=== PATIENT | male | born 1955 | race Caucasian/White ===

== ENCOUNTER 2016-07-12 12:42 | Inpatient (IN) | payer BC ==
[2016-07-12] MEDS ORDERED: Sodium Chloride 0.9% 1,000 ML IV ONE (13:19)
[2016-07-12] MEDS ORDERED: HYDROmorphone 0.5 MG/0.5 ML Syringe IVPUSH ONE ×3 (13:20→17:48)
[2016-07-12] MEDS ORDERED: Ondansetron 4 MG/2 ML SDV IVPUSH ONE (13:20)
--- NOTE | 2016-07-12 13:20 | EDM.PDOC ---
ED HPI GI/ABDOMINAL - General Chief Complaint: Abdominal Pain Stated Complaint: SENT BY [facility] Time Seen by Provider: 07/12/16 13:05 Source of Information: Reports: Patient History Limitations: Reports: No limitations - History of Present Illness INITIAL COMMENTS - FREE TEXT/NARRATIVE: Patient was sent over from [facility] for abdominal pain. He is having mostly LLQ pain, some radiation to RLQ. States he has not felt like eating since he had "a lot of popcorn" yesterday but is tolerating sips of water. Has known diverticula from colonoscopy last year but has never had a flare. - Related Data Allergies/ADRs: Allergies Allergy/AdvReac Type Severity Reaction Status Date / Time No Known Allergies Allergy Verified 07/12/16 13:06 Home Meds: Home Meds DULoxetine [Cymbalta] 60 mg PO DAILY 07/12/16 [History] Loratadine [Claritin] 1 tab PO DAILY PRN 07/12/16 [History] Moexipril/Hydrochlorothiazide [Moexipril-HCTZ 15-12.5 MG] 1 tab PO DAILY [History] Sildenafil [Viagra] 1 tab PO DAILY PRN 07/12/16 [History] Triamcinolone Acetonide [Nasacort AQ [place]] 16.5 gm NASBOTH DAILY PRN 07/12/16 [ History] Past Medical History HEENT History: Reports: Impaired vision Cardiovascular History: Reports: Hypertension - Past Surgical History Cardiovascular Surgical History: Reports: None GI Surgical History: Reports: Hernia, abdominal Other GI Surgeries/Procedures: right side Musculoskeletal Surgical History: Reports: Knee replacement Other Musculoskeletal Surgeries/Procedures:: right knee Social & Family History - Tobacco Use Smoking Status *Q: Never Smoker Second Hand Smoke Exposure: No - Caffeine Use Caffeine Use: Reports: Coffee - Recreational Drug Use Recreational Drug Use: No ED ROS GENERAL - Review of Systems Review Of Systems: See Below Constitutional: Reports: weakness, fatigue. Denies: fever, chills HEENT: Reports: No symptoms Respiratory: Reports: no symptoms Cardiovascular: Reports: No symptoms GI/Abdominal: Reports: Abdominal pain, Diarrhea, Decreased appetite, Nausea. Denies: Black stool, Bloody stool, Constipation, Difficulty swallowing, Distension, Vomiting : Reports: no symptoms Skin: Reports: no symptoms Psychiatric: Reports: No symptoms ED EXAM, GI/ABD - Physical Exam Exam: See Below Exam Limited By: No limitations General Appearance: alert, WD/WN, moderate distress Nose: normal inspection Throat/Mouth: Normal inspection, Normal oropharynx Head: atraumatic, normocephalic Neck: normal inspection Respiratory/Chest: no respiratory distress, lungs clear, normal breath sounds Cardiovascular: normal peripheral pulses, regular rate, rhythm, no murmur GI/Abdominal: soft, hypoactive bowel sounds, tenderness (significant LLQ tenderness, mild-moderate RLQ tenderness) Neurological: alert, oriented Psychiatric: normal affect, normal mood Skin Exam: Warm, Dry, Intact Course - Vital Signs Last Recorded V/S: Last Vital Signs Temp 97.4 F 07/12/16 13:02 Pulse 101 H 07/12/16 13:02 Resp 18 07/12/16 13:02 BP 154/87 H 07/12/16 13:02 Pulse Ox 98 07/12/16 13:02 - Orders/Labs/Meds Orders: Active Orders 24 hr Category Date Time Status Patient Status [ADT] Stat ADT 07/12/16 19:10 Active Sodium Chloride 0.9% [Saline Flush] Med 07/12/16 14:43 Active 10 ml FLUSH ONETIME PRN Medication Orders Sodium Chloride (Saline Flush) 10 ml FLUSH ONETIME PRN PRN Reason: IV FLUSH Last Admin: 07/12/16 14:59 Dose: 10 ml Labs: Laboratory Tests 07/12/16 Range/Units 13:25 Sodium 135 L (136-145) mEq/L Potassium 3.8 (3.5-5.1) mEq/L Chloride 97 L (98-107) mEq/L Carbon Dioxide 25 (21-32) mEq/L Anion Gap 16.8 H (5-15) BUN 18 (7-18) mg/dL Creatinine 1.0 (0.7-1.3) mg/dL Est Cr Clr Drug Dosing 80.53 mL/min Estimated GFR (MDRD) > 60 (>60) mL/min BUN/Creatinine Ratio 18.0 (14-18) Glucose 148 H (80-115) mg/dL Calcium 9.3 (8.5-10.1) mg/dL Total Bilirubin 1.4 H (0.2-1.0) mg/dL AST 17 (15-37) U/L ALT 40 (16-63) U/L Alkaline Phosphatase 67 (46-116) U/L C-Reactive Protein 25.0 H* (<1.0) mg/dL Total Protein 8.0 (6.4-8.2) g/dl Albumin 4.0 (3.4-5.0) g/dl Globulin 4.0 gm/dL Albumin/Globulin Ratio 1.0 (1-2) Lipase 174 (73-393) U/L Meds: Medications Generic Name Dose Route Start Last Admin Trade Name Freq PRN Reason Stop Dose Admin Sodium Chloride 10 ml 07/12/16 14:43 07/12/16 14:59 Saline Flush FLUSH 10 ml ONETIME PRN Administration IV FLUSH Discontinued Medications Generic Name Dose Route Start Last Admin Trade Name Freq PRN Reason Stop Dose Admin Diatrizoate Meglum/Diatrizoate Sod 90 ml 07/12/16 14:43 07/12/16 14:58 Gastrografin 37% PO 07/12/16 14:44 90 ml ONETIME ONE Administration Hydromorphone HCl 0.5 mg 07/12/16 13:20 07/12/16 13:27 Dilaudid IVPUSH 07/12/16 13:21 0.5 mg ONETIME ONE Administration Hydromorphone HCl 0.5 mg 07/12/16 14:19 07/12/16 14:24 Dilaudid IVPUSH 07/12/16 14:20 0.5 mg ONETIME ONE Administration Hydromorphone HCl 0.52 mg 07/12/16 17:45 Dilaudid IVPUSH 07/12/16 17:46 ONETIME ONE Hydromorphone HCl 0.5 mg 07/12/16 17:48 07/12/16 17:53 Dilaudid IVPUSH 07/12/16 17:49 0.5 mg ONETIME ONE Administration Sodium Chloride 1,000 mls @ 999 mls/hr 07/12/16 13:19 07/12/16 13:27 Normal Saline IV 07/12/16 14:19 999 mls/hr ONETIME ONE Administration Metronidazole 500 mg/ Premix 100 mls @ 100 mls/hr 07/12/16 18:06 07/12/16 18: 17 IV 07/12/16 19:05 100 mls/hr ONETIME ONE Administration Levofloxacin/Dextrose 500 mg/ 100 mls @ 100 mls/hr 07/12/16 18:12 07/12/16 18 :18 Premix IV 07/12/16 19:11 100 mls/hr ONETIME ONE Administration Iopamidol 125 ml 07/12/16 14:43 07/12/16 14:59 Isovue-300 (61%) IVPUSH 07/12/16 14:44 125 ml ONETIME ONE Administration Ondansetron HCl 4 mg 07/12/16 13:20 07/12/16 13:27 Zofran IVPUSH 07/12/16 13:21 4 mg ONETIME ONE Administration - Re-Assessments/Exams Free Text/Narrative Re-Assessment/Exam: Outside labs demonstrate a WBC of 23,500. CRP here was 25, creat 1.0. CT findings: "Inflammatory change is identified around the signoid colon in an area of diverticulosis. Findings are felt compatible with diverticulitis. There is some extraluminal gas being seen within the mesentery. No fluid collections are seen at this time to indicate an abscess". With this I recommend he be admitted for observation, MCG was performed and discussed with Dr Ellis. Will consult with surgery prior to admission to ensure no other treatment is indicated. 07/12/16 17:14 07/12/16 17:16 Free Text/Narrative Re-Assessment/Exam: Patient had wanted to go to [place] for hospitalization as it was closer to home but there was some debate if this would still be covered by insurance as transfer was not medically necessary. He decided to stay in [place]. He is full code. Dr Kaya Santacruz did examine patient, agrees to co-manage with hospitalist. Flagyl and Levaquin were ordered and first dose was started. 07/12/16 19:39 Departure - Departure Time of Disposition: 19:41 Disposition: Admitted As Inpatient 64 Condition: fair Clinical Impression: Diverticulitis Qualifiers: Diverticulitis site: large intestine Diverticulitis bleeding: without bleeding Diverticulitis complication: without perforation or abscess Qualified Code(s): K57.32 - Diverticulitis of large intestine without perforation or abscess without bleeding - My Orders Last 24 Hours: My Active Orders 07/12/16 14:43 Sodium Chloride 0.9% [Saline Flush] 10 ml FLUSH ONETIME PRN - Assessment/Plan Last 24 Hours: My Active Orders 07/12/16 14:43 Sodium Chloride 0.9% [Saline Flush] 10 ml FLUSH ONETIME PRN
[2016-07-12] MEDS ORDERED: Diatrizoate Meglumine/Diatrizoate Sodium 37% 120 ML Bottle PO ONE (14:43)
[2016-07-12] MEDS ORDERED: Sodium Chloride 0.9% 10 ML Syringe FLUSH PRN (14:43)
[2016-07-12] MEDS ORDERED: Iopamidol 612 MG/ML 150 ML Bottle IVPUSH ONE (14:43)
--- NOTE | 2016-07-12 15:52 | CT ---
CT abdomen and pelvis Technique: Multiple axial sections were obtained from above the dome of the diaphragm inferiorly through the pubic symphysis. Intravenous and oral contrast was utilized. Delayed images were also obtained through the bladder. Findings: Minimal atelectasis is noted within both lung bases. Coronary artery calcification is seen. Liver contains multiple small low density abnormalities. Most of these measure less than 1 cm with one measuring 1.7 cm. Larger one has Hounsfield unit measurements of a cyst and other smaller ones most likely represent additional small cysts. Spleen appears within normal limits. Adrenal glands show no nodule. Kidneys show contrast enhancement. Several very minimal cysts are believed to be present within both kidneys. Pancreas is unremarkable. Gallbladder shows no calcified gallstones. Aorta shows no aneurysmal dilatation. No retroperitoneal adenopathy is seen. Appendix appears normal. Inflammatory change is identified around the sigmoid colon in an area of diverticulosis. Findings are felt compatible with diverticulitis. There is some extraluminal gas being seen within the mesentery. No fluid collections are seen at this time to indicate an abscess. Delayed images shows contrast within the distal ureters and within the bladder. No bowel dilatation is seen. Small umbilical hernia is seen containing fat. Bone window settings were reviewed which appear within normal limits for the patient's age. Impression: 1. Findings compatible with diverticulitis within the sigmoid colon as noted above. 2. Other findings which are felt to be incidental as described above. Diagnostic code #3
[2016-07-12] MEDS ORDERED: HYDROmorphone 1 MG/ML Syringe IVPUSH ONE (17:45)
[2016-07-12] MEDS ORDERED: metroNIDAZOLE/Normal Saline 500 MG in Premix Bag 1 BAG IV ONE (18:06)
[2016-07-12] MEDS ORDERED: Levofloxacin/Dextrose 5%-Water 500 MG in Premix Bag 1 BAG IV ONE (18:12)
--- NOTE | 2016-07-12 18:24 | PCM.CONS ---
H&P History of Present Illness - General Date of Service: 07/12/16 - History of Present Illness Initial Comments - Free Text/Narative: The patient is a 61-year-old man I was asked to see in consultation by BECKY Conklin. He was sent to the emergency department at [facility] after initially being seen at the [facility]. Due to his highly elevated white count, and 25,000, and his symptoms of abdominal pain, he was sent over. The patient had a CT scan of the abdomen and pelvis at [facility] which demonstrated sigmoid diverticulitis with what appeared to be a focal perforation and a couple of small pockets of pneumoperitoneum in the mesentery. There was no evidence of abscess. On arrival to the emergency department he was also found to have an elevated total bilirubin of 1.4 and CRP of 25. The patient was afebrile with normal blood pressure and normal heart rate. He states that the pain began abruptly yesterday afternoon. It is primarily in the bilateral lower quadrants. It is achy, crampy, occasionally sharp and can occasionally double him over. He has never had similar pain. He states he had chills last night. He is also had nausea, vomiting, and diarrhea. He states he ate a lot of popcorn the day before. He does have a history of diverticulosis and last had a colonoscopy 12-07-[address] Stone at [facility]. Several small tubular adenomas were removed. The patient does have a family history of colon cancer in his father. He denies any previous episodes of diverticulitis of this significance, however he was noted to have some sigmoid colitis on his November colonoscopy. The patient does live in [place] with his , all of his family is also in [place]. His primary care provider is Sarita Bob with [facility]. He also receives care at [facility]. He works in [employer]. PMH - hypertension, obesity with BMI of 31.49, osteoarthritis, history of colon polyps, history of skin cancer, history of dysthymic disorder, seasonal allergies, erectile dysfunction PSxH - multiple prior colonoscopies with polypectomies, last 12-07-15, history of right inguinal hernia repair, history of sinus surgery, history of anterior cruciate ligament repair of the knee in 1996, history of right total knee arthroplasty Meds - Cymbalta 60 mg daily, Uniretic, Viagra, Claritin, Nasocort ALL - no known drug allergies SH - never smoker. Occasional alcohol use. Denies illicit drug use. Lives with in [place]. Works in [employer]. FH - father had history of colon cancer, at 70. Mother had hypertension. He also has a sister and a brother. ROS - as per HPI, otherwise 10 pt ROS was negative. Denies CP, palpitations, easy bleeding/bruising, or hx of difficulty with anesthesia. Bilateral Lower Abdomen Pain Score (Numeric/FACES): 8 - Related Data Allergies/Adverse Reactions: Allergies Allergy/AdvReac Type Severity Reaction Status Date / Time No Known Allergies Allergy Verified 07/12/16 13:06 Home Medications: Home Meds DULoxetine [Cymbalta] 60 mg PO DAILY 07/12/16 [History] Loratadine [Claritin] 1 tab PO DAILY PRN 07/12/16 [History] Moexipril/Hydrochlorothiazide [Moexipril-HCTZ 15-12.5 MG] 1 tab PO DAILY [History] Sildenafil [Viagra] 1 tab PO DAILY PRN 07/12/16 [History] Triamcinolone Acetonide [Nasacort AQ [place]] 16.5 gm NASBOTH DAILY PRN 07/12/16 [ History] Past Medical History HEENT History: Reports: Impaired vision Cardiovascular History: Reports: Hypertension - Past Surgical History Cardiovascular Surgical History: Reports: None GI Surgical History: Reports: Hernia, abdominal Other GI Surgeries/Procedures: right side Musculoskeletal Surgical History: Reports: Knee replacement Other Musculoskeletal Surgeries/Procedures:: right knee Social & Family History - Tobacco Use Smoking Status *Q: Never Smoker Second Hand Smoke Exposure: No - Caffeine Use Caffeine Use: Reports: Coffee - Recreational Drug Use Recreational Drug Use: No H&P Review of Systems - Review of Systems: Review Of Systems: ROS reveals no pertinent complaints other than HPI. Exam - Exam Exam: See Below - Vital Signs Vital Signs: Last Vital Signs Temp 97.4 F 07/12/16 13:02 Pulse 101 H 07/12/16 13:02 Resp 18 07/12/16 13:02 BP 154/87 H 07/12/16 13:02 Pulse Ox 98 07/12/16 13:02 Weight: 220 lb - Exam General: alert, oriented, cooperative, mild distress HEENT: No: Scleral icterus Neck: supple, trachea midline Lungs: Clear to auscultation, Normal respiratory effort Cardiovascular: regular rhythm, tachycardia (slight tachycardia (105)). No: systolic murmur, diastolic murmur Abdomen: soft, tenderness (bilateral lower quadrants ). No: peritoneal signs, distention, rigidity, rebound (Male) Exam: Deferred Rectal (Males) Exam: Deferred Extremities: No: clubbing, cyanosis, calf tenderness, edema Skin: warm, dry, intact Neurological: cranial nerves intact, normal speech. No: focal deficit Neuro Extensive - Mental Status: alert, oriented x3, normal mood/affect, normal cognition Psychiatric: alert, normal affect, normal mood - Patient Data Lab Results last 24 hrs: Result Diagrams: 07/14/16 04:37 07/14/16 04:37 Consult PN Assessment/Plan (1) Diverticulitis large intestine SNOMED Code(s): 7582710 Code(s): K57.32 - DVTRCLI OF LG INT W/O PERFORATION OR ABSCESS W/O BLEEDING Current Visit: Yes Problem List Initiated/Reviewed/Updated: Yes My Orders last 24 hours: My Active Orders 07/12/16 18:06 metroNIDAZOLE/Normal Saline [Flagyl 500 MG in NS 100 ML] 500 mg Premix Bag 1 bag IV ONETIME 07/12/16 18:12 Levofloxacin/Dextrose 5%-Water [Levaquin in D5W 500 MG/100 ML] 500 mg Premix Bag 1 bag IV ONETIME Plan: 61 yo M with diverticulitis of sigmoid colon with focal perforation and two small pockets of mesenteric air, no abscess Discussed findings of imaging/labs/exam and treatment plan with patient (bowel rest, IV antibiotics, possible surgery for worsening of condition, possible abscess drainage if abscess develops). He would prefer to be hospitalized in [place], as he lives there and his family is there. Would prefer to be admitted at [facility]. Patient is clinically stable and does NOT have a surgical abdomen on exam. Will provide Levaquin and Flagyl IV x 1 now while patient arranges private vehicle transport to [place]. Nereida Avendano, PAC updated and she will contact [facility] to discuss poss direct admit. Addendum: Informed by Ms. Dinius that patient decided to stay in [place], apparently was told by [facility] Hospitalist that would have to pay for entire stay in [place] out of pocket. Will continue to follow along with Hospitalist service.
--- NOTE | 2016-07-12 19:53 | PCM.HP ---
H&P History of Present Illness - General Date of Service: 07/12/16 Admit Problem/Dx: Diverticulitis Source of Information: Patient, Provider, RN notes reviewed History Limitations: Reports: No limitations - History of Present Illness Initial Comments - Free Text/Narative: This is a 61 yo white male with past medical hx/o HTN and ED who comes in with complaints of abdominal pain. He was initially seen at [facility] and was sent over for further eval. His pain is localized mostly on lower abdomen with some radiation to the right lower quadrant. He has not had anything to eat. His last meal was yesterday wherein he ate "a lot of popcorn". He denies any nausea or vomiting. He is passing gas and his last bowel movement was 2 hrs ago after he took the contrast for imaging study. Patient carries an hx/o diverticulosis. He has had colonoscopy 4-5 times now. His most recent was about a year ago done in [place] by Dr. Stone. His initial work up in ED shows a chemistry remarkable for Na 135, AG 16.8, BS 148, Total bili 1.4 and CRP 25. FLTs and Lipase are normal. Abdomen/Pelvis CT scan shows sigmoid diveritculitis with some extraluminal gas being seen within the mesentary. Dr. Santacruz was consulted in ED for co-management. Patient is full code. Bilateral Lower Abdomen Pain Score (Numeric/FACES): 8 - Related Data Allergies/Adverse Reactions: Allergies Allergy/AdvReac Type Severity Reaction Status Date / Time No Known Allergies Allergy Verified 07/12/16 13:06 Home Medications: Home Meds Moexipril/Hydrochlorothiazide [Moexipril-HCTZ 15-12.5 MG] 1 tab PO DAILY [History] RX: DULoxetine [Cymbalta] 60 mg PO DAILY 07/12/16 [History] RX: Loratadine [Claritin] 1 tab PO DAILY PRN 07/12/16 [History] RX: Sildenafil [Viagra] 1 tab PO DAILY PRN 07/12/16 [History] RX: Triamcinolone Acetonide [Nasacort AQ [place]] 16.5 gm NASBOTH DAILY PRN [History] Past Medical History HEENT History: Reports: Impaired vision Cardiovascular History: Reports: Hypertension - Past Surgical History Cardiovascular Surgical History: Reports: None GI Surgical History: Reports: Hernia, abdominal Other GI Surgeries/Procedures: right side Musculoskeletal Surgical History: Reports: Knee replacement Other Musculoskeletal Surgeries/Procedures:: right knee Social & Family History - Tobacco Use Smoking Status *Q: Never Smoker Second Hand Smoke Exposure: No - Caffeine Use Caffeine Use: Reports: Coffee - Recreational Drug Use Recreational Drug Use: No H&P Review of Systems - Review of Systems: Review Of Systems: See Below General: Denies: fever, chills, malaise, weakness, fatigue, night sweats HEENT: Reports: no symptoms Pulmonary: Denies: shortness of breath Cardiovascular: Denies: chest pain, palpitations, dyspnea on exertion Gastrointestinal: Reports: Abdominal pain. Denies: Diarrhea, Decreased appetite , Difficulty swallowing, Melena, Nausea Genitourinary: Reports: no symptoms Musculoskeletal: Reports: no symptoms Skin: Denies: cyanosis, jaundice, pruritis, erythema Psychiatric: Denies: depression, anxiety Neurological: Denies: confusion, weakness Hematologic/Lymphatic: Reports: no symptoms Immunologic: Reports: no symptoms Exam - Exam Exam: See Below - Vital Signs Vital Signs: Last Vital Signs Temp 36.3 C 07/12/16 13:02 Pulse 101 H 07/12/16 13:02 Resp 18 07/12/16 13:02 BP 154/87 H 07/12/16 13:02 Pulse Ox 98 07/12/16 13:02 Weight: 99.79 kg - Exam General: alert, oriented, cooperative HEENT: Conjunctiva clear, EACs clear, EOMI, Hearing intact, Mucosa moist & pink , Nares patent, Normal nasal septum, Posterior pharynx clear, Pupils equal, Pupils reactive, TMs clear Neck: supple, trachea midline Lungs: Clear to auscultation, Normal respiratory effort Cardiovascular: regular rate, regular rhythm Abdomen: normal bowel sounds, soft, tenderness, other (bloated but not tight). No: organomegaly, peritoneal signs, rigidity, rebound (Male) Exam: Deferred Rectal (Males) Exam: Deferred Back Exam: normal inspection, decreased range of motion Extremities: normal inspection, normal pulses. No: clubbing, cyanosis, calf tenderness, edema Peripheral Pulses: 2+: dorsalis pedis (L), dorsalis pedis (R) Skin: warm, dry, intact Neuro Extensive - Mental Status: oriented x3, normal cognition, memory intact Neuro Extensive - Motor, Sensory, Reflexes: CN II-XII intact, normal gait Psychiatric: alert, normal affect, normal mood - Patient Data Result Diagrams: 07/12/16 13:25 *Q Meaningful Use (ADM) - VTE *Q VTE Criteria *Q: - Stroke *Q Stroke Criteria *Q: - AMI *Q AMI Criteria *Q: Problem List Initiated/Reviewed/Updated: Yes Orders Last 24hrs: Medication Orders Sodium Chloride (Saline Flush) 10 ml FLUSH ONETIME PRN PRN Reason: IV FLUSH Last Admin: 07/12/16 14:59 Dose: 10 ml Assessment/Plan Comment:: Assessment/Plan: Acute Sigmoid Diverticulosis - Carries a hx/o Diverticulosis - CRP 25, no CBC done - Already Received IV Abx in ED - Will continue IV-ATB - Bowel Rest, Supportive Care, NPO except small ice chips - Dr. Santacruz on-board for co-management Chronic: HTN Seasonal Allergies Depression Plan: Routine AM Labs Resume Home Meds Additional orders as above Code status: 1
[2016-07-12] MEDS ORDERED: Acetaminophen 325 MG Tab PO PRN (20:10)
[2016-07-12] MEDS ORDERED: LORazepam 2 MG/ML MDV IV PRN (20:12)
[2016-07-12] MEDS ORDERED: Albuterol 0.083% 2.5 MG/3 ML Neb Soln NEB PRN (20:12)
[2016-07-12] MEDS ORDERED: Promethazine 12.5 MG in Sodium Chloride 0.9% 50 ML IV PRN (20:12)
[2016-07-12] MEDS ORDERED: Ondansetron 4 MG/2 ML SDV IV PRN (20:12)
[2016-07-12] MEDS ORDERED: SILDENAFIL PO PRN (20:40)
[2016-07-12] MEDS ORDERED: Loratadine 10 MG Tab PO PRN (20:40)
[2016-07-12] MEDS ORDERED: Temazepam 30 MG Cap PO PRN (20:46)
[2016-07-12] MEDS: HYDROmorphone 1 MG/ML Syringe IVPUSH PRN (21:15)
[2016-07-12] MEDS: Dextrose 5%-0.9% NaCl 1,000 ML IV SCH (21:31)
[2016-07-13] MEDS: metroNIDAZOLE/Normal Saline 500 MG in Premix Bag 1 BAG IV SCH ×3 (01:34→18:03)
[2016-07-13] MEDS: HYDROmorphone 1 MG/ML Syringe IVPUSH PRN ×2 (01:44→18:09)
[2016-07-13] MEDS: Dextrose 5%-0.9% NaCl 1,000 ML IV SCH ×2 (05:29→22:06)
[2016-07-13] MEDS: Acetaminophen/HYDROcodone 325-5 MG Tab PO PRN ×3 (05:33→18:01)
--- NOTE | 2016-07-13 07:42 | PCM.PN ---
- General Info Date of Service: 07/13/16 Admission Dx/Problem (Free Text): Diverticulitis Subjective Update: Follow Up Functional Status: Reports: pain controlled, ambulating, urinating. Denies: new symptoms - Review of Systems General: Denies: fever, weakness, fatigue, malaise, chills HEENT: Reports: no symptoms Pulmonary: Denies: shortness of breath Cardiovascular: Denies: chest pain Gastrointestinal: Reports: Abdominal pain, Diarrhea, Flatus. Denies: Constipation, Difficulty swallowing, Hematochezia, Melena, Nausea, Vomiting Genitourinary: Reports: no symptoms Musculoskeletal: Reports: no symptoms Skin: Reports: no symptoms Neurological: Denies: confusion Psychiatric: Denies: depression, anxiety Systems Review Comment:: No significant overnight or acute issues. He feels good. His had a loose bowel movement this am. He is passing gas. He denies nausea or vomiting. - Patient Data Vitals - most recent: Last Vital Signs Temp 37.2 C 07/13/16 01:38 Pulse 116 H 07/13/16 01:38 Resp 18 07/13/16 01:38 BP 128/83 07/13/16 01:38 Pulse Ox 95 07/13/16 01:38 Weight - most recent: 101.741 kg I&O - last 24 hours: Intake & Output 07/12/16 07/13/16 07/13/16 22:59 06:59 14:59 Intake Total 1241 Output Total 600 Balance 641 Lab Results last 24 hrs: Laboratory Results - last 24 hr 07/13/16 07/13/16 Range/Units 05:34 05:34 WBC 23.81 H (4.23-9.07) K/mm3 RBC 4.90 (4.63-6.08) M/mm3 Hgb 15.0 (13.7-17.5) gm/L Hct 42.4 (40.1-51.0) % MCV 86.5 (79.0-92.2) fl MCH 30.6 (25.7-32.2) pg MCHC 35.4 (32.2-35.5) g/dl RDW Std Deviation 45.6 H (35.1-43.9) fL Plt Count 265 (163-337) K/mm3 MPV 9.7 (9.4-12.3) fl Neut % (Auto) 89.9 H (34.0-67.9) % Lymph % (Auto) 6.9 L (21.8-53.1) % [place] % (Auto) 3.1 L (5.3-12.2) % Eos % (Auto) 0.1 L (0.8-7.0) Baso % (Auto) 0.0 L (0.1-1.2) % Neut # 21.41 H (1.78-5.38) K/mm3 Lymph # 1.64 (1.32-3.57) K/mm3 [place] # 0.73 (0.30-0.82) K/mm3 Eos # 0.02 L (0.04-0.54) K/mm3 Baso # 0.01 (0.01-0.08) K/mm3 Manual Slide Review Abnormal smear Sodium 134 L (136-145) mEq/L Potassium 4.0 (3.5-5.1) mEq/L Chloride 99 (98-107) mEq/L Carbon Dioxide 24 (21-32) mEq/L Anion Gap 15.0 (5-15) BUN 12 (7-18) mg/dL Creatinine 1.1 (0.7-1.3) mg/dL Est Cr Clr Drug Dosing 73.21 mL/min Estimated GFR (MDRD) > 60 (>60) mL/min BUN/Creatinine Ratio 10.9 L (14-18) Glucose 150 H (80-115) mg/dL Calcium 8.6 (8.5-10.1) mg/dL Magnesium 1.8 (1.8-2.4) mg/dl C-Reactive Protein 40.8 H* (<1.0) mg/dL Med Orders - Current: Current Medications Acetaminophen (Tylenol) 650 mg PO Q4H PRN PRN Reason: Pain (Mild 1-3)/fever Acetaminophen/Hydrocodone Bitart ([place] 325-5 Mg) 1 tab PO Q4H PRN PRN Reason: Pain (moderate 4-6) Last Admin: 07/13/16 05:33 Dose: 1 tab Albuterol (Proventil Neb Soln) 2.5 mg NEB Q2H PRN PRN Reason: Shortness Of Breath/wheezing Duloxetine HCl (Cymbalta) 60 mg PO DAILY [facility] Hydrochlorothiazide (Hydrochlorothiazide) 12.5 mg PO DAILY [facility] Hydromorphone HCl (Dilaudid) 0.5 mg IVPUSH Q2H PRN PRN Reason: Pain (severe 7-10) Stop: 07/16/16 23:59 Last Admin: 07/13/16 01:44 Dose: 0.5 mg Promethazine HCl 12.5 mg/ (Sodium Chloride) 50.5 mls @ 100 mls/hr IV Q6H PRN PRN Reason: Nausea/Vomiting Dextrose/Sodium Chloride (Dextrose 5%-Normal Saline) 1,000 mls @ 125 mls/hr IV ASDIRECTED [facility] Last Admin: 07/13/16 05:29 Dose: 125 mls/hr Levofloxacin/Dextrose 500 mg/ (Premix) 100 mls @ 100 mls/hr IV Q24H [facility] Metronidazole 500 mg/ Premix 100 mls @ 100 mls/hr IV Q8H [facility] Last Admin: 07/13/16 01:34 Dose: 100 mls/hr Lisinopril (Prinivil) 10 mg PO DAILY [facility] Loratadine (Claritin) 10 mg PO DAILY PRN PRN Reason: Allergies Lorazepam (Ativan) 1 mg IV Q6H PRN PRN Reason: Other Non-Formulary Medication (Sildenafil) 1 tab PO DAILY PRN PRN Reason: impotence Triamcinolone (Acetonide Topical) 16.5 gm NASBOTH DAILY PRN PRN Reason: Allergies Ondansetron HCl (Zofran) 4 mg IV Q6H PRN PRN Reason: Nausea/Vomiting Sodium Chloride (Saline Flush) 10 ml FLUSH ONETIME PRN PRN Reason: IV FLUSH Last Admin: 07/12/16 14:59 Dose: 10 ml Temazepam (Restoril) 30 mg PO BEDTIME PRN PRN Reason: Sleep Discontinued Medications Diatrizoate Meglum/Diatrizoate Sod (Gastrografin 37%) 90 ml PO ONETIME ONE Stop: 07/12/16 14:44 Last Admin: 07/12/16 14:58 Dose: 90 ml Hydromorphone HCl (Dilaudid) 0.5 mg IVPUSH ONETIME ONE Stop: 07/12/16 13:21 Last Admin: 07/12/16 13:27 Dose: 0.5 mg Hydromorphone HCl (Dilaudid) 0.5 mg IVPUSH ONETIME ONE Stop: 07/12/16 14:20 Last Admin: 07/12/16 14:24 Dose: 0.5 mg Hydromorphone HCl (Dilaudid) 0.52 mg IVPUSH ONETIME ONE Stop: 07/12/16 17:46 Hydromorphone HCl (Dilaudid) 0.5 mg IVPUSH ONETIME ONE Stop: 07/12/16 17:49 Last Admin: 07/12/16 17:53 Dose: 0.5 mg Sodium Chloride (Normal Saline) 1,000 mls @ 999 mls/hr IV ONETIME ONE Stop: 07/12/16 14:19 Last Admin: 07/12/16 13:27 Dose: 999 mls/hr Metronidazole 500 mg/ Premix 100 mls @ 100 mls/hr IV ONETIME ONE Stop: 07/12/16 19:05 Last Admin: 07/12/16 18:17 Dose: 100 mls/hr Levofloxacin/Dextrose 500 mg/ (Premix) 100 mls @ 100 mls/hr IV ONETIME ONE Stop: 07/12/16 19:11 Last Admin: 07/12/16 18:18 Dose: 100 mls/hr Iopamidol (Isovue-300 (61%)) 125 ml IVPUSH ONETIME ONE Stop: 07/12/16 14:44 Last Admin: 07/12/16 14:59 Dose: 125 ml Ondansetron HCl (Zofran) 4 mg IVPUSH ONETIME ONE Stop: 07/12/16 13:21 Last Admin: 07/12/16 13:27 Dose: 4 mg Temazepam (Restoril) 30 mg PO BEDTIME PRN PRN Reason: SLEEP Stop: 07/12/16 23:00 Last Admin: 07/12/16 21:21 Dose: 30 mg - Exam General: alert, oriented, cooperative, no acute distress HEENT: Pupils equal, Pupils reactive, EOMI, Mucous membr. moist/pink Neck: supple, trachea midline Lungs: Clear to auscultation, Normal respiratory effort Cardiovascular: regular rate, regular rhythm Abdomen: bowel sounds present, soft, no distension, tenderness, abnormal bowel sounds (hyperactive), other (bloated and round). No: rigidity, guarding (Male) Exam: Deferred Back Exam: normal inspection, decreased range of motion Extremities: no edema, normal pulses, no tenderness/swelling, no clubbing, no cyanosis, no calf tenderness, calf tenderness Peripheral Pulses: 2+: dorsalis pedis (L), dorsalis pedis (R) Skin: warm, dry, intact Neurological: no new focal deficit Psy/Mental Status: alert, normal affect, normal mood - Problem List Review Problem List Initiated/Reviewed/Updated: Yes - My Orders Last 24 Hours: My Active Orders 07/12/16 20:10 Intake and Output [RC] 04,16 Oxygen Therapy [RC] PRN Up With Assistance [RC] ASDIRECTED Up ad Vero [RC] ASDIRECTED VTE/DVT Education [RC] PER UNIT ROUTINE Vital Signs [RC] Q4H Acetaminophen [Tylenol] 650 mg PO Q4H PRN Acetaminophen/HYDROcodone [[place] 325-5 MG] 1 tab PO Q4H PRN HYDROmorphone [Dilaudid] 0.5 mg IVPUSH Q2H PRN Sequential Compression Device [OM.PC] Per Unit Routine Resuscitation Status Routine 07/12/16 20:12 Antiembolic Devices [RC] PER UNIT ROUTINE RT Aerosol Therapy [RC] ASDIRECTED Albuterol [Proventil Neb Soln] 2.5 mg NEB Q2H PRN LORazepam [Ativan] 1 mg IV Q6H PRN Ondansetron [Zofran] 4 mg IV Q6H PRN Promethazine [Phenergan] 12.5 mg Sodium Chloride 0.9% [Normal Saline] 50 ml IV Q6H Temazepam [Restoril] 30 mg PO BEDTIME PRN 07/12/16 20:14 Notify Provider Consults [RC] ASDIRECTED Consult to Case Management [CONS] Routine Consult to Physician [CONS] Routine Consult to Air Filler [CONS] Routine 07/12/16 20:40 Loratadine [Claritin] 10 mg PO DAILY PRN Sildenafil 1 tab PO DAILY PRN Triamcinolone Acetonide 16.5 gm NASBOTH DAILY PRN 07/12/16 20:45 Dextrose 5%-0.9% NaCl [Dextrose 5%-Normal Saline] 1,000 ml IV ASDIRECTED 07/12/16 Dinner Nothing per Oral Now Diet [DIET] 07/13/16 02:00 metroNIDAZOLE/Normal Saline [Flagyl 500 MG in NS 100 ML] 500 mg Premix Bag 1 bag IV Q8H 07/13/16 09:00 DULoxetine [Cymbalta] 60 mg PO DAILY Hydrochlorothiazide 12.5 mg PO DAILY Lisinopril [Prinivil] 10 mg PO DAILY 07/13/16 18:00 Levofloxacin/Dextrose 5%-Water [Levaquin in D5W 500 MG/100 ML] 500 mg Premix Bag 1 bag IV Q24H 07/14/16 05:11 BASIC METABOLIC PANEL,BMP [CHEM] AM C-REACTIVE PROTEIN [CHEM] AM CBC WITH AUTO DIFF [HEME] AM MAGNESIUM [CHEM] AM 07/15/16 05:11 BASIC METABOLIC PANEL,BMP [CHEM] AM C-REACTIVE PROTEIN [CHEM] AM CBC WITH AUTO DIFF [HEME] AM MAGNESIUM [CHEM] AM 07/16/16 05:11 C-REACTIVE PROTEIN [CHEM] AM - Plan Plan:: Assessment/Plan: Acute Sigmoid Diverticulosis - Carries a hx/o Diverticulosis - CRP 25--> 40.8, WBC 23.81, Neutrophils 21.41 - On Intravenous Levaquin and Flagyl - Bowel Rest, Supportive Care, NPO except small ice chips - Dr. Santacruz on-board for co-management Sinus Tachycardia - HR 106-116 - Follow up EKG Chronic: HTN Seasonal Allergies Depression Plan: Continue current treatment Defer po level to Dr. Santacruz Continue po meds Routine AM Labs Resume Home Meds Encourage to ambulated TIS-QID as tolerated Additional orders as above Code status: 1
[2016-07-13] MEDS ORDERED: Metoprolol Tartrate 5 MG/5 ML SDV IVPUSH PRN (10:07)
[2016-07-13] MEDS: Lisinopril 10 MG Tab PO SCH (10:48)
[2016-07-13] MEDS: Hydrochlorothiazide 12.5 MG Cap PO SCH (10:48)
[2016-07-13] MEDS: DULoxetine 30 MG Cap PO SCH (10:48)
--- NOTE | 2016-07-13 12:32 | PCM.CONSN ---
- General Info Date of Service: 07/13/16 Admission Dx/Problem (Free Text): Diverticulitis - Review of Systems Systems Review Comment:: Pain improved over yesterday. + loose stools, no hematochezia. + Flatus. Denies hunger. Afebrile overnight. - Patient Data Vitals - most recent: Last Vital Signs Temp 99.3 F 07/13/16 11:55 Pulse 109 H 07/13/16 11:55 Resp 18 07/13/16 11:55 BP 114/77 07/13/16 11:55 Pulse Ox 92 L 07/13/16 11:55 Weight - most recent: 224 lb 4.8 oz I&O - last 24 hours: Intake & Output 07/12/16 07/13/16 07/13/16 22:59 06:59 14:59 Intake Total 0 Balance 0 Lab Results last 24 hrs: Laboratory Results - last 24 hr 07/13/16 Range/Units 10:35 Lactic Acid 0.9 (0.4-2.0) mmol/L Med Orders - Current: Current Medications Acetaminophen (Tylenol) 650 mg PO Q4H PRN PRN Reason: Pain (Mild 1-3)/fever Acetaminophen/Hydrocodone Bitart ([place] 325-5 Mg) 1 tab PO Q4H PRN PRN Reason: Pain (moderate 4-6) Last Admin: 07/13/16 10:55 Dose: 1 tab Albuterol (Proventil Neb Soln) 2.5 mg NEB Q2H PRN PRN Reason: Shortness Of Breath/wheezing Duloxetine HCl (Cymbalta) 60 mg PO DAILY [facility] Last Admin: 07/13/16 10:48 Dose: 60 mg Hydrochlorothiazide (Hydrochlorothiazide) 12.5 mg PO DAILY [facility] Last Admin: 07/13/16 10:48 Dose: 12.5 mg Hydromorphone HCl (Dilaudid) 0.5 mg IVPUSH Q2H PRN PRN Reason: Pain (severe 7-10) Stop: 07/16/16 23:59 Last Admin: 07/13/16 01:44 Dose: 0.5 mg Promethazine HCl 12.5 mg/ (Sodium Chloride) 50.5 mls @ 100 mls/hr IV Q6H PRN PRN Reason: Nausea/Vomiting Dextrose/Sodium Chloride (Dextrose 5%-Normal Saline) 1,000 mls @ 125 mls/hr IV ASDIRECTED [facility] Last Admin: 07/13/16 05:29 Dose: 125 mls/hr Levofloxacin/Dextrose 500 mg/ (Premix) 100 mls @ 100 mls/hr IV Q24H [facility] Metronidazole 500 mg/ Premix 100 mls @ 100 mls/hr IV Q8H [facility] Last Admin: 07/13/16 10:48 Dose: 100 mls/hr Lisinopril (Prinivil) 10 mg PO DAILY [facility] Last Admin: 07/13/16 10:48 Dose: 10 mg Loratadine (Claritin) 10 mg PO DAILY PRN PRN Reason: Allergies Lorazepam (Ativan) 1 mg IV Q6H PRN PRN Reason: Other Metoprolol Tartrate (Lopressor) 5 mg IVPUSH Q4H PRN PRN Reason: Tachycardia Triamcinolone (Acetonide Topical) 16.5 gm NASBOTH DAILY PRN PRN Reason: Allergies Ondansetron HCl (Zofran) 4 mg IV Q6H PRN PRN Reason: Nausea/Vomiting Sodium Chloride (Saline Flush) 10 ml FLUSH ONETIME PRN PRN Reason: IV FLUSH Last Admin: 07/12/16 14:59 Dose: 10 ml Temazepam (Restoril) 30 mg PO BEDTIME PRN PRN Reason: Sleep Discontinued Medications Diatrizoate Meglum/Diatrizoate Sod (Gastrografin 37%) 90 ml PO ONETIME ONE Stop: 07/12/16 14:44 Last Admin: 07/12/16 14:58 Dose: 90 ml Hydromorphone HCl (Dilaudid) 0.5 mg IVPUSH ONETIME ONE Stop: 07/12/16 13:21 Last Admin: 07/12/16 13:27 Dose: 0.5 mg Hydromorphone HCl (Dilaudid) 0.5 mg IVPUSH ONETIME ONE Stop: 07/12/16 14:20 Last Admin: 07/12/16 14:24 Dose: 0.5 mg Hydromorphone HCl (Dilaudid) 0.52 mg IVPUSH ONETIME ONE Stop: 07/12/16 17:46 Last Admin: 07/13/16 12:28 Dose: Not Given Hydromorphone HCl (Dilaudid) 0.5 mg IVPUSH ONETIME ONE Stop: 07/12/16 17:49 Last Admin: 07/12/16 17:53 Dose: 0.5 mg Sodium Chloride (Normal Saline) 1,000 mls @ 999 mls/hr IV ONETIME ONE Stop: 07/12/16 14:19 Last Admin: 07/12/16 13:27 Dose: 999 mls/hr Metronidazole 500 mg/ Premix 100 mls @ 100 mls/hr IV ONETIME ONE Stop: 07/12/16 19:05 Last Admin: 07/12/16 18:17 Dose: 100 mls/hr Levofloxacin/Dextrose 500 mg/ (Premix) 100 mls @ 100 mls/hr IV ONETIME ONE Stop: 07/12/16 19:11 Last Admin: 07/12/16 18:18 Dose: 100 mls/hr Iopamidol (Isovue-300 (61%)) 125 ml IVPUSH ONETIME ONE Stop: 07/12/16 14:44 Last Admin: 07/12/16 14:59 Dose: 125 ml Non-Formulary Medication (Sildenafil) 1 tab PO DAILY PRN PRN Reason: impotence Ondansetron HCl (Zofran) 4 mg IVPUSH ONETIME ONE Stop: 07/12/16 13:21 Last Admin: 07/12/16 13:27 Dose: 4 mg Temazepam (Restoril) 30 mg PO BEDTIME PRN PRN Reason: SLEEP Stop: 07/12/16 23:00 Last Admin: 07/12/16 21:21 Dose: 30 mg - Exam Quality Assessment: No: supplemental oxygen General: alert, oriented, cooperative, no acute distress HEENT: No: Scleral icterus Lungs: Clear to auscultation, Normal respiratory effort Cardiovascular: regular rate, regular rhythm Abdomen: soft, no distension, tenderness (Bilateral lower quadrants ). No: rigidity Extremities: no edema, no clubbing. No: calf tenderness Skin: warm, dry, intact Neurological: no new focal deficit Psy/Mental Status: alert, normal affect, normal mood Consult PN Assessment/Plan (1) Diverticulitis large intestine SNOMED Code(s): 1849800 Code(s): K57.32 - DVTRCLI OF LG INT W/O PERFORATION OR ABSCESS W/O BLEEDING Current Visit: Yes Problem List Initiated/Reviewed/Updated: Yes Plan: 61 yo M with diverticulitis of sigmoid colon with focal perforation and two small pockets of mesenteric air, no abscess - Continue IV abx Levquin/Flagyl (D2/14) - No need for surgical intervention at this time, but will continue to monitor - Strict NPO x scant ice chips for bowel rest - Consider PICC - WBC down slightly 25->23.8, CRP up 25->40.8
[2016-07-13] MEDS: Levofloxacin/Dextrose 5%-Water 500 MG in Premix Bag 1 BAG IV SCH (19:04)
[2016-07-13] MEDS: Temazepam 15 MG Cap PO PRN (22:05)
[2016-07-14] MEDS: metroNIDAZOLE/Normal Saline 500 MG in Premix Bag 1 BAG IV SCH ×3 (01:47→18:18)
[2016-07-14] MEDS: Acetaminophen/HYDROcodone 325-5 MG Tab PO PRN ×4 (05:15→22:23)
[2016-07-14] MEDS: HYDROmorphone 1 MG/ML Syringe IVPUSH PRN ×4 (05:15→22:22)
[2016-07-14] MEDS: Dextrose 5%-0.9% NaCl 1,000 ML IV SCH ×3 (05:16→22:31)
--- NOTE | 2016-07-14 08:37 | PCM.PN ---
- General Info Date of Service: 07/14/16 Admission Dx/Problem (Free Text): Diverticulitis Subjective Update: Follow Up Functional Status: Reports: pain controlled, ambulating, urinating. Denies: tolerating diet, new symptoms - Review of Systems General: Denies: fever, weakness, fatigue, malaise, chills HEENT: Reports: no symptoms Pulmonary: Denies: shortness of breath Cardiovascular: Denies: chest pain Gastrointestinal: Reports: Abdominal pain, Flatus. Denies: Nausea, Vomiting Genitourinary: Reports: no symptoms Musculoskeletal: Reports: no symptoms Skin: Reports: no symptoms Neurological: Denies: confusion, difficulty walking, gait disturbance Psychiatric: Denies: depression, anxiety Systems Review Comment:: No overnight or acute issues. He has been ambulating down the campa. He is passing gas and had one small loose BM this am. He feels better today. He remains afebrile. WBC is now down to 15k and CRP is down to 36.3. - Patient Data Vitals - most recent: Last Vital Signs Temp 37.0 C 07/13/16 20:17 Pulse 102 H 07/14/16 03:22 Resp 18 07/14/16 03:22 BP 134/71 07/14/16 03:22 Pulse Ox 97 07/14/16 03:22 Weight - most recent: 102.654 kg I&O - last 24 hours: Intake & Output 07/13/16 07/14/16 07/14/16 22:59 06:59 14:59 Intake Total 2100 1748 Output Total 300 400 Balance 1800 1348 Lab Results last 24 hrs: Laboratory Results - last 24 hr 07/13/16 07/14/16 07/14/16 Range/Units 10:35 04:37 04:37 WBC 15.85 H (4.23-9.07) K/mm3 RBC 4.21 L (4.63-6.08) M/mm3 Hgb 12.3 L (13.7-17.5) gm/L Hct 37.4 L (40.1-51.0) % MCV 88.8 (79.0-92.2) fl MCH 29.2 (25.7-32.2) pg MCHC 32.9 (32.2-35.5) g/dl RDW Std Deviation 46.4 H (35.1-43.9) fL Plt Count 185 (163-337) K/mm3 MPV 9.8 (9.4-12.3) fl Neut % (Auto) 88.9 H (34.0-67.9) % Lymph % (Auto) 5.6 L (21.8-53.1) % [place] % (Auto) 4.8 L (5.3-12.2) % Eos % (Auto) 0.3 L (0.8-7.0) Baso % (Auto) 0.1 (0.1-1.2) % Neut # 14.10 H (1.78-5.38) K/mm3 Lymph # 0.88 L (1.32-3.57) K/mm3 [place] # 0.76 (0.30-0.82) K/mm3 Eos # 0.05 (0.04-0.54) K/mm3 Baso # 0.01 (0.01-0.08) K/mm3 Manual Slide Review Abnormal smear Sodium 135 L (136-145) mEq/L Potassium 3.5 (3.5-5.1) mEq/L Chloride 101 (98-107) mEq/L Carbon Dioxide 26 (21-32) mEq/L Anion Gap 11.5 (5-15) BUN 9 (7-18) mg/dL Creatinine 0.9 (0.7-1.3) mg/dL Est Cr Clr Drug Dosing 89.48 mL/min Estimated GFR (MDRD) > 60 (>60) mL/min BUN/Creatinine Ratio 10.0 L (14-18) Glucose 138 H (80-115) mg/dL Lactic Acid 0.9 (0.4-2.0) mmol/L Calcium 7.9 L (8.5-10.1) mg/dL Magnesium 1.8 (1.8-2.4) mg/dl C-Reactive Protein 36.3 H* (<1.0) mg/dL Med Orders - Current: Current Medications Acetaminophen (Tylenol) 650 mg PO Q4H PRN PRN Reason: Pain (Mild 1-3)/fever Acetaminophen/Hydrocodone Bitart ([place] 325-5 Mg) 1 tab PO Q4H PRN PRN Reason: Pain (moderate 4-6) Last Admin: 07/14/16 05:15 Dose: 1 tab Albuterol (Proventil Neb Soln) 2.5 mg NEB Q2H PRN PRN Reason: Shortness Of Breath/wheezing Duloxetine HCl (Cymbalta) 60 mg PO DAILY [facility] Last Admin: 07/13/16 10:48 Dose: 60 mg Flunisolide (Nasalide Nasal [place]) 0 ml NASBOTH DAILY PRN PRN Reason: Allergies Hydrochlorothiazide (Hydrochlorothiazide) 12.5 mg PO DAILY [facility] Last Admin: 07/13/16 10:48 Dose: 12.5 mg Hydromorphone HCl (Dilaudid) 0.5 mg IVPUSH Q2H PRN PRN Reason: Pain (severe 7-10) Stop: 07/16/16 23:59 Last Admin: 07/14/16 05:15 Dose: 0.5 mg Promethazine HCl 12.5 mg/ (Sodium Chloride) 50.5 mls @ 100 mls/hr IV Q6H PRN PRN Reason: Nausea/Vomiting Dextrose/Sodium Chloride (Dextrose 5%-Normal Saline) 1,000 mls @ 125 mls/hr IV ASDIRECTED [facility] Last Admin: 07/14/16 05:16 Dose: 125 mls/hr Levofloxacin/Dextrose 500 mg/ (Premix) 100 mls @ 100 mls/hr IV Q24H [facility] Last Admin: 07/13/16 19:04 Dose: 100 mls/hr Metronidazole 500 mg/ Premix 100 mls @ 100 mls/hr IV Q8H [facility] Last Admin: 07/14/16 01:47 Dose: 100 mls/hr Lisinopril (Prinivil) 10 mg PO DAILY [facility] Last Admin: 07/13/16 10:48 Dose: 10 mg Loratadine (Claritin) 10 mg PO DAILY PRN PRN Reason: Allergies Lorazepam (Ativan) 1 mg IV Q6H PRN PRN Reason: Other Metoprolol Tartrate (Lopressor) 5 mg IVPUSH Q4H PRN PRN Reason: Tachycardia Ondansetron HCl (Zofran) 4 mg IV Q6H PRN PRN Reason: Nausea/Vomiting Sodium Chloride (Saline Flush) 10 ml FLUSH ONETIME PRN PRN Reason: IV FLUSH Last Admin: 07/12/16 14:59 Dose: 10 ml Temazepam (Restoril) 30 mg PO BEDTIME PRN PRN Reason: Sleep Last Admin: 07/13/16 22:05 Dose: 30 mg Discontinued Medications Diatrizoate Meglum/Diatrizoate Sod (Gastrografin 37%) 90 ml PO ONETIME ONE Stop: 07/12/16 14:44 Last Admin: 07/12/16 14:58 Dose: 90 ml Hydromorphone HCl (Dilaudid) 0.5 mg IVPUSH ONETIME ONE Stop: 07/12/16 13:21 Last Admin: 07/12/16 13:27 Dose: 0.5 mg Hydromorphone HCl (Dilaudid) 0.5 mg IVPUSH ONETIME ONE Stop: 07/12/16 14:20 Last Admin: 07/12/16 14:24 Dose: 0.5 mg Hydromorphone HCl (Dilaudid) 0.52 mg IVPUSH ONETIME ONE Stop: 07/12/16 17:46 Last Admin: 07/13/16 12:28 Dose: Not Given Hydromorphone HCl (Dilaudid) 0.5 mg IVPUSH ONETIME ONE Stop: 07/12/16 17:49 Last Admin: 07/12/16 17:53 Dose: 0.5 mg Sodium Chloride (Normal Saline) 1,000 mls @ 999 mls/hr IV ONETIME ONE Stop: 07/12/16 14:19 Last Admin: 07/12/16 13:27 Dose: 999 mls/hr Metronidazole 500 mg/ Premix 100 mls @ 100 mls/hr IV ONETIME ONE Stop: 07/12/16 19:05 Last Admin: 07/12/16 18:17 Dose: 100 mls/hr Levofloxacin/Dextrose 500 mg/ (Premix) 100 mls @ 100 mls/hr IV ONETIME ONE Stop: 07/12/16 19:11 Last Admin: 07/12/16 18:18 Dose: 100 mls/hr Iopamidol (Isovue-300 (61%)) 125 ml IVPUSH ONETIME ONE Stop: 07/12/16 14:44 Last Admin: 07/12/16 14:59 Dose: 125 ml Non-Formulary Medication (Sildenafil) 1 tab PO DAILY PRN PRN Reason: impotence Ondansetron HCl (Zofran) 4 mg IVPUSH ONETIME ONE Stop: 07/12/16 13:21 Last Admin: 07/12/16 13:27 Dose: 4 mg Temazepam (Restoril) 30 mg PO BEDTIME PRN PRN Reason: SLEEP Stop: 07/12/16 23:00 Last Admin: 07/12/16 21:21 Dose: 30 mg - Exam General: alert, oriented, cooperative, no acute distress HEENT: Pupils equal, Pupils reactive, EOMI, Mucous membr. moist/pink Neck: supple, trachea midline, no JVD Lungs: Clear to auscultation, Normal respiratory effort Cardiovascular: regular rate, regular rhythm Abdomen: soft, no distension, tenderness (LLQ), abnormal bowel sounds, other ( tight and round) (Male) Exam: Deferred Back Exam: normal inspection, decreased range of motion Extremities: no edema, normal pulses, no tenderness/swelling, no clubbing, no cyanosis, no calf tenderness Skin: warm, dry, intact Neurological: no new focal deficit Psy/Mental Status: alert, normal affect, normal mood - Problem List Review Problem List Initiated/Reviewed/Updated: Yes - My Orders Last 24 Hours: My Active Orders 07/13/16 10:07 Metoprolol Tartrate [Lopressor] 5 mg IVPUSH Q4H PRN 07/13/16 10:29 EKG 12 Lead [EKG Documentation Completion] [RC] ROUTINE - Plan Plan:: Assessment/Plan: Acute Sigmoid Diverticulosis w/o Abscess - Carries a hx/o Diverticulosis - CRP 25--> 40.8--> 36.3, WBC 23.81--> 15.85, Neutrophils 21.41--> 14.10 - On Intravenous Levaquin and Flagyl - Bowel Rest, Supportive Care, NPO except small ice chips - Dr. Santacruz on-board for co-management Resolved: S/p Sinus Tachycardia - HR 106-116 - Follow up EKG Chronic: HTN Seasonal Allergies Depression Plan: He is improving clinically Continue current treatment Defer po level to Dr. Santacruz Routine AM Labs Encourage to ambulated TIS-QID as tolerated Additional orders as above Code status: 1
[2016-07-14] MEDS: DULoxetine 30 MG Cap PO SCH (09:38)
[2016-07-14] MEDS: Hydrochlorothiazide 12.5 MG Cap PO SCH (09:39)
[2016-07-14] MEDS: Lisinopril 10 MG Tab PO SCH (09:39)
--- NOTE | 2016-07-14 14:56 | PCM.CONSN ---
- General Info Date of Service: 07/14/16 Subjective Update: Stable overnight. Pain about 4 or 5 if up walking around, only in LLQ at this time. + Flatus, + small loose BM. Feels a little better than yesterday. Afebrile. No tachycardia. - Patient Data Vitals - most recent: Last Vital Signs Temp 97.5 F 07/14/16 08:31 Pulse 93 07/14/16 08:31 Resp 16 07/14/16 08:31 BP 124/72 07/14/16 09:39 Pulse Ox 96 07/14/16 08:31 Weight - most recent: 226 lb 5 oz I&O - last 24 hours: Intake & Output 07/13/16 07/14/16 07/14/16 22:59 06:59 14:59 Intake Total 2100 1748 0 Output Total 300 400 Balance 1800 1348 0 Lab Results last 24 hrs: Laboratory Results - last 24 hr 07/14/16 07/14/16 Range/Units 04:37 04:37 WBC 15.85 H (4.23-9.07) K/mm3 RBC 4.21 L (4.63-6.08) M/mm3 Hgb 12.3 L (13.7-17.5) gm/L Hct 37.4 L (40.1-51.0) % MCV 88.8 (79.0-92.2) fl MCH 29.2 (25.7-32.2) pg MCHC 32.9 (32.2-35.5) g/dl RDW Std Deviation 46.4 H (35.1-43.9) fL Plt Count 185 (163-337) K/mm3 MPV 9.8 (9.4-12.3) fl Neut % (Auto) 88.9 H (34.0-67.9) % Lymph % (Auto) 5.6 L (21.8-53.1) % [place] % (Auto) 4.8 L (5.3-12.2) % Eos % (Auto) 0.3 L (0.8-7.0) Baso % (Auto) 0.1 (0.1-1.2) % Neut # 14.10 H (1.78-5.38) K/mm3 Lymph # 0.88 L (1.32-3.57) K/mm3 [place] # 0.76 (0.30-0.82) K/mm3 Eos # 0.05 (0.04-0.54) K/mm3 Baso # 0.01 (0.01-0.08) K/mm3 Manual Slide Review Abnormal smear Sodium 135 L (136-145) mEq/L Potassium 3.5 (3.5-5.1) mEq/L Chloride 101 (98-107) mEq/L Carbon Dioxide 26 (21-32) mEq/L Anion Gap 11.5 (5-15) BUN 9 (7-18) mg/dL Creatinine 0.9 (0.7-1.3) mg/dL Est Cr Clr Drug Dosing 89.48 mL/min Estimated GFR (MDRD) > 60 (>60) mL/min BUN/Creatinine Ratio 10.0 L (14-18) Glucose 138 H (80-115) mg/dL Calcium 7.9 L (8.5-10.1) mg/dL Magnesium 1.8 (1.8-2.4) mg/dl C-Reactive Protein 36.3 H* (<1.0) mg/dL Med Orders - Current: Current Medications Acetaminophen (Tylenol) 650 mg PO Q4H PRN PRN Reason: Pain (Mild 1-3)/fever Acetaminophen/Hydrocodone Bitart ([place] 325-5 Mg) 1 tab PO Q4H PRN PRN Reason: Pain (moderate 4-6) Last Admin: 07/14/16 10:17 Dose: 1 tab Albuterol (Proventil Neb Soln) 2.5 mg NEB Q2H PRN PRN Reason: Shortness Of Breath/wheezing Duloxetine HCl (Cymbalta) 60 mg PO DAILY [facility] Last Admin: 07/14/16 09:38 Dose: 60 mg Flunisolide (Nasalide Nasal [place]) 0 ml NASBOTH DAILY PRN PRN Reason: Allergies Hydrochlorothiazide (Hydrochlorothiazide) 12.5 mg PO DAILY [facility] Last Admin: 07/14/16 09:39 Dose: 12.5 mg Hydromorphone HCl (Dilaudid) 0.5 mg IVPUSH Q2H PRN PRN Reason: Pain (severe 7-10) Stop: 07/16/16 23:59 Last Admin: 07/14/16 10:16 Dose: 0.5 mg Promethazine HCl 12.5 mg/ (Sodium Chloride) 50.5 mls @ 100 mls/hr IV Q6H PRN PRN Reason: Nausea/Vomiting Dextrose/Sodium Chloride (Dextrose 5%-Normal Saline) 1,000 mls @ 125 mls/hr IV ASDIRECTED [facility] Last Admin: 07/14/16 13:36 Dose: 125 mls/hr Levofloxacin/Dextrose 500 mg/ (Premix) 100 mls @ 100 mls/hr IV Q24H [facility] Last Admin: 07/13/16 19:04 Dose: 100 mls/hr Metronidazole 500 mg/ Premix 100 mls @ 100 mls/hr IV Q8H [facility] Last Admin: 07/14/16 09:41 Dose: 100 mls/hr Lisinopril (Prinivil) 10 mg PO DAILY [facility] Last Admin: 07/14/16 09:39 Dose: 10 mg Loratadine (Claritin) 10 mg PO DAILY PRN PRN Reason: Allergies Lorazepam (Ativan) 1 mg IV Q6H PRN PRN Reason: Other Metoprolol Tartrate (Lopressor) 5 mg IVPUSH Q4H PRN PRN Reason: Tachycardia Ondansetron HCl (Zofran) 4 mg IV Q6H PRN PRN Reason: Nausea/Vomiting Sodium Chloride (Saline Flush) 10 ml FLUSH ONETIME PRN PRN Reason: IV FLUSH Last Admin: 07/12/16 14:59 Dose: 10 ml Temazepam (Restoril) 30 mg PO BEDTIME PRN PRN Reason: Sleep Last Admin: 07/13/16 22:05 Dose: 30 mg Discontinued Medications Diatrizoate Meglum/Diatrizoate Sod (Gastrografin 37%) 90 ml PO ONETIME ONE Stop: 07/12/16 14:44 Last Admin: 07/12/16 14:58 Dose: 90 ml Hydromorphone HCl (Dilaudid) 0.5 mg IVPUSH ONETIME ONE Stop: 07/12/16 13:21 Last Admin: 07/12/16 13:27 Dose: 0.5 mg Hydromorphone HCl (Dilaudid) 0.5 mg IVPUSH ONETIME ONE Stop: 07/12/16 14:20 Last Admin: 07/12/16 14:24 Dose: 0.5 mg Hydromorphone HCl (Dilaudid) 0.52 mg IVPUSH ONETIME ONE Stop: 07/12/16 17:46 Last Admin: 07/13/16 12:28 Dose: Not Given Hydromorphone HCl (Dilaudid) 0.5 mg IVPUSH ONETIME ONE Stop: 07/12/16 17:49 Last Admin: 07/12/16 17:53 Dose: 0.5 mg Sodium Chloride (Normal Saline) 1,000 mls @ 999 mls/hr IV ONETIME ONE Stop: 07/12/16 14:19 Last Admin: 07/12/16 13:27 Dose: 999 mls/hr Metronidazole 500 mg/ Premix 100 mls @ 100 mls/hr IV ONETIME ONE Stop: 07/12/16 19:05 Last Admin: 07/12/16 18:17 Dose: 100 mls/hr Levofloxacin/Dextrose 500 mg/ (Premix) 100 mls @ 100 mls/hr IV ONETIME ONE Stop: 07/12/16 19:11 Last Admin: 07/12/16 18:18 Dose: 100 mls/hr Iopamidol (Isovue-300 (61%)) 125 ml IVPUSH ONETIME ONE Stop: 07/12/16 14:44 Last Admin: 07/12/16 14:59 Dose: 125 ml Non-Formulary Medication (Sildenafil) 1 tab PO DAILY PRN PRN Reason: impotence Ondansetron HCl (Zofran) 4 mg IVPUSH ONETIME ONE Stop: 07/12/16 13:21 Last Admin: 07/12/16 13:27 Dose: 4 mg Temazepam (Restoril) 30 mg PO BEDTIME PRN PRN Reason: SLEEP Stop: 07/12/16 23:00 Last Admin: 07/12/16 21:21 Dose: 30 mg - Exam General: alert, oriented, cooperative, no acute distress HEENT: No: Scleral icterus Lungs: Clear to auscultation, Normal respiratory effort Cardiovascular: regular rate, regular rhythm Abdomen: soft, no distension, tenderness (LLQ ) Extremities: no edema, no calf tenderness Skin: warm, dry, intact Neurological: no new focal deficit Psy/Mental Status: alert, normal affect, normal mood Consult PN Assessment/Plan (1) Diverticulitis large intestine SNOMED Code(s): 1784866 Code(s): K57.32 - DVTRCLI OF LG INT W/O PERFORATION OR ABSCESS W/O BLEEDING Current Visit: Yes Problem List Initiated/Reviewed/Updated: Yes Plan: 61 yo M with diverticulitis of sigmoid colon with focal perforation and two small pockets of mesenteric air, no abscess - Patient improving - Continue IV abx Levquin/Flagyl (D3/14) - No need for surgical intervention at this time, but will continue to monitor - Strict NPO x scant ice chips for bowel rest - WBC down 25->23.8->15.8, CRP down 25->40.8->36.3
[2016-07-14] MEDS: Levofloxacin/Dextrose 5%-Water 500 MG in Premix Bag 1 BAG IV SCH (19:33)
[2016-07-14] MEDS: Temazepam 15 MG Cap PO PRN (22:24)
[2016-07-15] MEDS: metroNIDAZOLE/Normal Saline 500 MG in Premix Bag 1 BAG IV SCH ×3 (02:09→17:52)
--- NOTE | 2016-07-15 06:47 | PCM.PN ---
- General Info Date of Service: 07/15/16 Admission Dx/Problem (Free Text): Diverticulitis Subjective Update: Follow Up Functional Status: Reports: pain controlled, ambulating, urinating. Denies: new symptoms - Review of Systems General: Denies: fever, weakness, fatigue, malaise, chills HEENT: Reports: no symptoms Pulmonary: Denies: shortness of breath Cardiovascular: Denies: chest pain, palpitations, dyspnea on exertion, edema Gastrointestinal: Reports: Flatus. Denies: Abdominal pain, Nausea, Vomiting Genitourinary: Reports: no symptoms Musculoskeletal: Reports: no symptoms Skin: Denies: cyanosis, jaundice, pruritis, rash Neurological: Denies: dizziness, difficulty walking, gait disturbance Psychiatric: Denies: depression, anxiety, hallucinations Systems Review Comment:: No overnight or acute issues. He is doing relatively well. - Patient Data Vitals - most recent: Last Vital Signs Temp 36.9 C 07/15/16 02:09 Pulse 81 07/15/16 02:09 Resp 16 07/15/16 02:09 BP 114/86 07/15/16 02:09 Pulse Ox 98 07/15/16 02:09 Weight - most recent: 103.646 kg I&O - last 24 hours: Intake & Output 07/14/16 07/14/16 07/15/16 14:59 22:59 06:59 Intake Total 0 1634 1839 Output Total 250 Balance 0 1384 1839 Lab Results last 24 hrs: Laboratory Results - last 24 hr 07/14/16 07/15/16 Range/Units 04:37 05:03 WBC 15.85 H 11.34 H (4.23-9.07) K/mm3 RBC 4.21 L 4.12 L (4.63-6.08) M/mm3 Hgb 12.3 L 12.4 L (13.7-17.5) gm/L Hct 37.4 L 36.4 L (40.1-51.0) % MCV 88.8 88.3 (79.0-92.2) fl MCH 29.2 30.1 (25.7-32.2) pg MCHC 32.9 34.1 (32.2-35.5) g/dl RDW Std Deviation 46.4 H 45.8 H (35.1-43.9) fL Plt Count 185 205 (163-337) K/mm3 MPV 9.8 9.9 (9.4-12.3) fl Neut % (Auto) 88.9 H 80.3 H (34.0-67.9) % Lymph % (Auto) 5.6 L 10.1 L (21.8-53.1) % [place] % (Auto) 4.8 L 6.5 (5.3-12.2) % Eos % (Auto) 0.3 L 2.6 (0.8-7.0) Baso % (Auto) 0.1 0.1 (0.1-1.2) % Neut # 14.10 H 9.10 H (1.78-5.38) K/mm3 Lymph # 0.88 L 1.14 L (1.32-3.57) K/mm3 [place] # 0.76 0.74 (0.30-0.82) K/mm3 Eos # 0.05 0.30 (0.04-0.54) K/mm3 Baso # 0.01 0.01 (0.01-0.08) K/mm3 Manual Slide Review Abnormal smear Med Orders - Current: Current Medications Acetaminophen (Tylenol) 650 mg PO Q4H PRN PRN Reason: Pain (Mild 1-3)/fever Acetaminophen/Hydrocodone Bitart ([place] 325-5 Mg) 1 tab PO Q4H PRN PRN Reason: Pain (moderate 4-6) Last Admin: 07/14/16 22:23 Dose: 1 tab Albuterol (Proventil Neb Soln) 2.5 mg NEB Q2H PRN PRN Reason: Shortness Of Breath/wheezing Duloxetine HCl (Cymbalta) 60 mg PO DAILY [facility] Last Admin: 07/14/16 09:38 Dose: 60 mg Flunisolide (Nasalide Nasal [place]) 0 ml NASBOTH DAILY PRN PRN Reason: Allergies Hydrochlorothiazide (Hydrochlorothiazide) 12.5 mg PO DAILY [facility] Last Admin: 07/14/16 09:39 Dose: 12.5 mg Hydromorphone HCl (Dilaudid) 0.5 mg IVPUSH Q2H PRN PRN Reason: Pain (severe 7-10) Stop: 07/16/16 23:59 Last Admin: 02/27/17 22:22 Dose: 0.5 mg Promethazine HCl 12.5 mg/ (Sodium Chloride) 50.5 mls @ 100 mls/hr IV Q6H PRN PRN Reason: Nausea/Vomiting Dextrose/Sodium Chloride (Dextrose 5%-Normal Saline) 1,000 mls @ 125 mls/hr IV ASDIRECTED [facility] Last Admin: 07/14/16 22:31 Dose: 125 mls/hr Levofloxacin/Dextrose 500 mg/ (Premix) 100 mls @ 100 mls/hr IV Q24H [facility] Last Admin: 07/14/16 19:33 Dose: 100 mls/hr Metronidazole 500 mg/ Premix 100 mls @ 100 mls/hr IV Q8H [facility] Last Admin: 07/15/16 02:09 Dose: 100 mls/hr Lisinopril (Prinivil) 10 mg PO DAILY [facility] Last Admin: 07/14/16 09:39 Dose: 10 mg Loratadine (Claritin) 10 mg PO DAILY PRN PRN Reason: Allergies Lorazepam (Ativan) 1 mg IV Q6H PRN PRN Reason: Other Metoprolol Tartrate (Lopressor) 5 mg IVPUSH Q4H PRN PRN Reason: Tachycardia Ondansetron HCl (Zofran) 4 mg IV Q6H PRN PRN Reason: Nausea/Vomiting Sodium Chloride (Saline Flush) 10 ml FLUSH ONETIME PRN PRN Reason: IV FLUSH Last Admin: 07/12/16 14:59 Dose: 10 ml Temazepam (Restoril) 30 mg PO BEDTIME PRN PRN Reason: Sleep Last Admin: 07/14/16 22:24 Dose: 30 mg Discontinued Medications Diatrizoate Meglum/Diatrizoate Sod (Gastrografin 37%) 90 ml PO ONETIME ONE Stop: 07/12/16 14:44 Last Admin: 07/12/16 14:58 Dose: 90 ml Hydromorphone HCl (Dilaudid) 0.5 mg IVPUSH ONETIME ONE Stop: 07/12/16 13:21 Last Admin: 07/12/16 13:27 Dose: 0.5 mg Hydromorphone HCl (Dilaudid) 0.5 mg IVPUSH ONETIME ONE Stop: 07/12/16 14:20 Last Admin: 07/12/16 14:24 Dose: 0.5 mg Hydromorphone HCl (Dilaudid) 0.52 mg IVPUSH ONETIME ONE Stop: 07/12/16 17:46 Last Admin: 07/13/16 12:28 Dose: Not Given Hydromorphone HCl (Dilaudid) 0.5 mg IVPUSH ONETIME ONE Stop: 07/12/16 17:49 Last Admin: 07/12/16 17:53 Dose: 0.5 mg Sodium Chloride (Normal Saline) 1,000 mls @ 999 mls/hr IV ONETIME ONE Stop: 07/12/16 14:19 Last Admin: 07/12/16 13:27 Dose: 999 mls/hr Metronidazole 500 mg/ Premix 100 mls @ 100 mls/hr IV ONETIME ONE Stop: 07/12/16 19:05 Last Admin: 07/12/16 18:17 Dose: 100 mls/hr Levofloxacin/Dextrose 500 mg/ (Premix) 100 mls @ 100 mls/hr IV ONETIME ONE Stop: 07/12/16 19:11 Last Admin: 07/12/16 18:18 Dose: 100 mls/hr Iopamidol (Isovue-300 (61%)) 125 ml IVPUSH ONETIME ONE Stop: 07/12/16 14:44 Last Admin: 07/12/16 14:59 Dose: 125 ml Non-Formulary Medication (Sildenafil) 1 tab PO DAILY PRN PRN Reason: impotence Ondansetron HCl (Zofran) 4 mg IVPUSH ONETIME ONE Stop: 07/12/16 13:21 Last Admin: 07/12/16 13:27 Dose: 4 mg Temazepam (Restoril) 30 mg PO BEDTIME PRN PRN Reason: SLEEP Stop: 07/12/16 23:00 Last Admin: 07/12/16 21:21 Dose: 30 mg - Exam General: alert, oriented, cooperative, no acute distress HEENT: Pupils equal, Pupils reactive, EOMI, Mucous membr. moist/pink Neck: supple, trachea midline, no JVD, no thyromegaly Lungs: Clear to auscultation, Normal respiratory effort Cardiovascular: regular rate, regular rhythm Abdomen: bowel sounds present, soft, no tenderness, no distension (Male) Exam: Deferred Back Exam: normal inspection, decreased range of motion Extremities: no edema, normal pulses, no tenderness/swelling, no clubbing, no cyanosis, no calf tenderness Peripheral Pulses: 2+: dorsalis pedis (L), dorsalis pedis (R) Skin: warm, dry, intact Neurological: no new focal deficit Psy/Mental Status: alert, normal affect, normal mood - Problem List Review Problem List Initiated/Reviewed/Updated: Yes - Plan Plan:: Assessment/Plan: Acute Sigmoid Diverticulosis w/o Abscess - Carries a hx/o Diverticulosis - CRP 25--> 40.8--> 36.3--> 27.8, WBC 23.81--> 15.85--> 11.34, Neutrophils 21.41--> 14.10 - On Intravenous Levaquin and Flagyl - Bowel Rest, Supportive Care, NPO except small ice chips - Dr. Santacruz on-board for co-management Resolved: S/p Sinus Tachycardia - HR 106-116 - Follow up EKG Chronic: HTN Seasonal Allergies Depression Plan: He is clinically stable Continue current treatment Clear liquid diet in Am per Dr. Santacruz Routine AM Labs Encourage to ambulated TIS-QID as tolerated Additional orders as above Code status: 1
[2016-07-15] MEDS: Dextrose 5%-0.9% NaCl 1,000 ML IV SCH ×2 (07:31→16:40)
[2016-07-15] MEDS: Acetaminophen/HYDROcodone 325-5 MG Tab PO PRN ×4 (07:32→21:43)
[2016-07-15] MEDS: DULoxetine 30 MG Cap PO SCH (08:29)
[2016-07-15] MEDS: Hydrochlorothiazide 12.5 MG Cap PO SCH (08:29)
[2016-07-15] MEDS: Lisinopril 10 MG Tab PO SCH (08:29)
[2016-07-15] MEDS ORDERED: Potassium Chloride 20 MEQ Tab.ER PO ONE (11:00)
--- NOTE | 2016-07-15 11:17 | PCM.CONSN ---
- General Info Date of Service: 07/15/16 Admission Dx/Problem (Free Text): Diverticulitis - Review of Systems Systems Review Comment:: Feeling better overall. Maybe a little hungry. No BM. +Flatus. No fevers. - Patient Data Vitals - most recent: Last Vital Signs Temp 98.4 F 07/15/16 08:47 Pulse 89 07/15/16 08:27 Resp 16 07/15/16 08:27 BP 128/77 07/15/16 08:29 Pulse Ox 96 07/15/16 08:27 Weight - most recent: 228 lb 8 oz I&O - last 24 hours: Intake & Output 07/14/16 07/15/16 07/15/16 22:59 06:59 14:59 Intake Total 1634 1839 0 Output Total 250 Balance 1384 1839 0 Lab Results last 24 hrs: Laboratory Results - last 24 hr 07/15/16 07/15/16 Range/Units 05:03 05:03 WBC 11.34 H (4.23-9.07) K/mm3 RBC 4.12 L (4.63-6.08) M/mm3 Hgb 12.4 L (13.7-17.5) gm/L Hct 36.4 L (40.1-51.0) % MCV 88.3 (79.0-92.2) fl MCH 30.1 (25.7-32.2) pg MCHC 34.1 (32.2-35.5) g/dl RDW Std Deviation 45.8 H (35.1-43.9) fL Plt Count 205 (163-337) K/mm3 MPV 9.9 (9.4-12.3) fl Neut % (Auto) 80.3 H (34.0-67.9) % Lymph % (Auto) 10.1 L (21.8-53.1) % [place] % (Auto) 6.5 (5.3-12.2) % Eos % (Auto) 2.6 (0.8-7.0) Baso % (Auto) 0.1 (0.1-1.2) % Neut # 9.10 H (1.78-5.38) K/mm3 Lymph # 1.14 L (1.32-3.57) K/mm3 [place] # 0.74 (0.30-0.82) K/mm3 Eos # 0.30 (0.04-0.54) K/mm3 Baso # 0.01 (0.01-0.08) K/mm3 Sodium 137 (136-145) mEq/L Potassium 3.2 L (3.5-5.1) mEq/L Chloride 101 (98-107) mEq/L Carbon Dioxide 27 (21-32) mEq/L Anion Gap 12.2 (5-15) BUN 7 (7-18) mg/dL Creatinine 0.8 (0.7-1.3) mg/dL Est Cr Clr Drug Dosing 100.66 mL/min Estimated GFR (MDRD) > 60 (>60) mL/min BUN/Creatinine Ratio 8.8 L (14-18) Glucose 119 H (80-115) mg/dL Calcium 8.2 L (8.5-10.1) mg/dL Magnesium 1.8 (1.8-2.4) mg/dl C-Reactive Protein 27.8 H* (<1.0) mg/dL Med Orders - Current: Current Medications Acetaminophen (Tylenol) 650 mg PO Q4H PRN PRN Reason: Pain (Mild 1-3)/fever Acetaminophen/Hydrocodone Bitart ([place] 325-5 Mg) 1 tab PO Q4H PRN PRN Reason: Pain (moderate 4-6) Last Admin: 07/15/16 07:32 Dose: 1 tab Albuterol (Proventil Neb Soln) 2.5 mg NEB Q2H PRN PRN Reason: Shortness Of Breath/wheezing Duloxetine HCl (Cymbalta) 60 mg PO DAILY [facility] Last Admin: 07/15/16 08:29 Dose: 60 mg Flunisolide (Nasalide Nasal [place]) 0 ml NASBOTH DAILY PRN PRN Reason: Allergies Hydrochlorothiazide (Hydrochlorothiazide) 12.5 mg PO DAILY [facility] Last Admin: 07/15/16 08:29 Dose: 12.5 mg Hydromorphone HCl (Dilaudid) 0.5 mg IVPUSH Q2H PRN PRN Reason: Pain (severe 7-10) Stop: 07/16/16 23:59 Promethazine HCl 12.5 mg/ (Sodium Chloride) 50.5 mls @ 100 mls/hr IV Q6H PRN PRN Reason: Nausea/Vomiting Dextrose/Sodium Chloride (Dextrose 5%-Normal Saline) 1,000 mls @ 125 mls/hr IV ASDIRECTED [facility] Last Admin: 07/15/16 07:31 Dose: 125 mls/hr Levofloxacin/Dextrose 500 mg/ (Premix) 100 mls @ 100 mls/hr IV Q24H [facility] Last Admin: 07/14/16 19:33 Dose: 100 mls/hr Metronidazole 500 mg/ Premix 100 mls @ 100 mls/hr IV Q8H [facility] Last Admin: 07/15/16 10:12 Dose: 100 mls/hr Lisinopril (Prinivil) 10 mg PO DAILY [facility] Last Admin: 07/15/16 08:29 Dose: 10 mg Loratadine (Claritin) 10 mg PO DAILY PRN PRN Reason: Allergies Lorazepam (Ativan) 1 mg IV Q6H PRN PRN Reason: Other Magnesium Sulfate (Pharmacy To Dose - Magnesium Replacement) 1 dose .XX ASDIRECTED [facility] Metoprolol Tartrate (Lopressor) 5 mg IVPUSH Q4H PRN PRN Reason: Tachycardia Ondansetron HCl (Zofran) 4 mg IV Q6H PRN PRN Reason: Nausea/Vomiting Potassium Chloride (Pharmacy To Dose - Potassium Replacement) 1 dose .XX ASDIRECTED [facility] Sodium Chloride (Saline Flush) 10 ml FLUSH ONETIME PRN PRN Reason: IV FLUSH Last Admin: 07/12/16 14:59 Dose: 10 ml Temazepam (Restoril) 30 mg PO BEDTIME PRN PRN Reason: Sleep Last Admin: 07/14/16 22:24 Dose: 30 mg Discontinued Medications Diatrizoate Meglum/Diatrizoate Sod (Gastrografin 37%) 90 ml PO ONETIME ONE Stop: 07/12/16 14:44 Last Admin: 07/12/16 14:58 Dose: 90 ml Hydromorphone HCl (Dilaudid) 0.5 mg IVPUSH ONETIME ONE Stop: 07/12/16 13:21 Last Admin: 07/12/16 13:27 Dose: 0.5 mg Hydromorphone HCl (Dilaudid) 0.5 mg IVPUSH ONETIME ONE Stop: 07/12/16 14:20 Last Admin: 07/12/16 14:24 Dose: 0.5 mg Hydromorphone HCl (Dilaudid) 0.52 mg IVPUSH ONETIME ONE Stop: 07/12/16 17:46 Last Admin: 07/13/16 12:28 Dose: Not Given Hydromorphone HCl (Dilaudid) 0.5 mg IVPUSH ONETIME ONE Stop: 07/12/16 17:49 Last Admin: 07/12/16 17:53 Dose: 0.5 mg Hydromorphone HCl (Dilaudid) 0.5 mg IVPUSH Q2H PRN PRN Reason: Pain (severe 7-10) Stop: 07/16/16 23:59 Last Admin: 07/14/16 22:22 Dose: 0.5 mg Sodium Chloride (Normal Saline) 1,000 mls @ 999 mls/hr IV ONETIME ONE Stop: 07/12/16 14:19 Last Admin: 07/12/16 13:27 Dose: 999 mls/hr Metronidazole 500 mg/ Premix 100 mls @ 100 mls/hr IV ONETIME ONE Stop: 07/12/16 19:05 Last Admin: 07/12/16 18:17 Dose: 100 mls/hr Levofloxacin/Dextrose 500 mg/ (Premix) 100 mls @ 100 mls/hr IV ONETIME ONE Stop: 07/12/16 19:11 Last Admin: 07/12/16 18:18 Dose: 100 mls/hr Iopamidol (Isovue-300 (61%)) 125 ml IVPUSH ONETIME ONE Stop: 07/12/16 14:44 Last Admin: 07/12/16 14:59 Dose: 125 ml Non-Formulary Medication (Sildenafil) 1 tab PO DAILY PRN PRN Reason: impotence Ondansetron HCl (Zofran) 4 mg IVPUSH ONETIME ONE Stop: 07/12/16 13:21 Last Admin: 07/12/16 13:27 Dose: 4 mg Potassium Chloride (Klor-Con M20) 40 meq PO ONETIME ONE Stop: 07/15/16 11:01 Temazepam (Restoril) 30 mg PO BEDTIME PRN PRN Reason: SLEEP Stop: 07/12/16 23:00 Last Admin: 07/12/16 21:21 Dose: 30 mg - Exam General: alert, oriented, cooperative HEENT: No: Scleral icterus Lungs: Clear to auscultation, Normal respiratory effort Cardiovascular: regular rate, regular rhythm Abdomen: soft, no distension, tenderness (minimal LLQ ). No: rigidity, rebound (Male) Exam: No hernia Extremities: no edema, no tenderness/swelling Skin: warm, dry, intact Neurological: no new focal deficit Psy/Mental Status: alert, normal affect, normal mood Consult PN Assessment/Plan (1) Diverticulitis large intestine SNOMED Code(s): 9349804 Code(s): K57.32 - DVTRCLI OF LG INT W/O PERFORATION OR ABSCESS W/O BLEEDING Priority: High Qualifiers: Diverticulitis bleeding: without bleeding Problem List Initiated/Reviewed/Updated: Yes Plan: 61 yo M with diverticulitis of sigmoid colon with focal perforation and two small pockets of mesenteric air, no abscess Patient clinically improving Plan to start CLD tomorrow and if well tolerated, advance to Regular diet on THURS. Patient had no questions or concerns.
[2016-07-15] MEDS: Levofloxacin/Dextrose 5%-Water 500 MG in Premix Bag 1 BAG IV SCH (18:55)
[2016-07-15] MEDS: Temazepam 15 MG Cap PO PRN (21:43)
[2016-07-16] MEDS: HYDROmorphone 0.5 MG/0.5 ML Syringe IVPUSH PRN ×2 (03:05→12:48)
[2016-07-16] MEDS: Acetaminophen/HYDROcodone 325-5 MG Tab PO PRN ×4 (03:05→20:59)
[2016-07-16] MEDS: metroNIDAZOLE/Normal Saline 500 MG in Premix Bag 1 BAG IV SCH ×3 (03:06→17:07)
[2016-07-16] MEDS: Dextrose 5%-0.9% NaCl 1,000 ML IV SCH (03:07)
--- NOTE | 2016-07-16 08:46 | PCM.CONSN ---
- General Info Date of Service: 07/16/16 Subjective Update: Patient is doing well. Reports he is feeling good. However, woke up this am at 0300 with a sharp lower abdominal pain that lasted minutes. Was given Aspen and Dilaudid with relief of pain. No BM today. Last BM two days ago. No melena or hematochezia. Is passing gas. No Urinary complaints. Pain is a 3-4/ 10 presently to lower abdomen. Has not yet started clear liquid diet. Functional Status: Reports: pain controlled, ambulating, urinating - Review of Systems General: Reports: no symptoms HEENT: Reports: no symptoms Pulmonary: Reports: no symptoms. Denies: shortness of breath Cardiovascular: Reports: no symptoms. Denies: chest pain, palpitations, dyspnea on exertion, edema, lightheadedness Gastrointestinal: Reports: Abdominal pain. Denies: Diarrhea, Nausea, Vomiting Genitourinary: Reports: no symptoms Musculoskeletal: Reports: no symptoms Skin: Reports: no symptoms Neurological: Reports: no symptoms. Denies: confusion, dizziness, headache Psychiatric: Reports: no symptoms - Patient Data Vitals - most recent: Last Vital Signs Temp 37.1 C 07/16/16 03:10 Pulse 91 07/16/16 03:10 Resp 16 07/16/16 03:10 BP 148/93 H 07/16/16 03:10 Pulse Ox 97 07/16/16 03:10 Weight - most recent: 103.283 kg I&O - last 24 hours: Intake & Output 07/15/16 07/16/16 07/16/16 22:59 06:59 14:59 Intake Total 1573 1320 Output Total 550 Balance 1023 1320 Lab Results last 24 hrs: Laboratory Results - last 24 hr 07/16/16 Range/Units 05:14 C-Reactive Protein 17.2 H* (<1.0) mg/dL Med Orders - Current: Current Medications Acetaminophen (Tylenol) 650 mg PO Q4H PRN PRN Reason: Pain (Mild 1-3)/fever Acetaminophen/Hydrocodone Bitart ([place] 325-5 Mg) 1 tab PO Q4H PRN PRN Reason: Pain (moderate 4-6) Last Admin: 07/16/16 03:05 Dose: 1 tab Albuterol (Proventil Neb Soln) 2.5 mg NEB Q2H PRN PRN Reason: Shortness Of Breath/wheezing Duloxetine HCl (Cymbalta) 60 mg PO DAILY [facility] Last Admin: 07/15/16 08:29 Dose: 60 mg Flunisolide (Nasalide Nasal [place]) 0 ml NASBOTH DAILY PRN PRN Reason: Allergies Hydrochlorothiazide (Hydrochlorothiazide) 12.5 mg PO DAILY [facility] Last Admin: 07/15/16 08:29 Dose: 12.5 mg Hydromorphone HCl (Dilaudid) 0.5 mg IVPUSH Q2H PRN PRN Reason: Pain (severe 7-10) Stop: 07/16/16 23:59 Last Admin: 07/16/16 03:05 Dose: 0.5 mg Promethazine HCl 12.5 mg/ (Sodium Chloride) 50.5 mls @ 100 mls/hr IV Q6H PRN PRN Reason: Nausea/Vomiting Dextrose/Sodium Chloride (Dextrose 5%-Normal Saline) 1,000 mls @ 125 mls/hr IV ASDIRECTED [facility] Last Admin: 07/16/16 03:07 Dose: 125 mls/hr Levofloxacin/Dextrose 500 mg/ (Premix) 100 mls @ 100 mls/hr IV Q24H [facility] Last Admin: 07/15/16 18:55 Dose: 100 mls/hr Metronidazole 500 mg/ Premix 100 mls @ 100 mls/hr IV Q8H [facility] Last Admin: 07/16/16 03:06 Dose: 100 mls/hr Lisinopril (Prinivil) 10 mg PO DAILY [facility] Last Admin: 07/15/16 08:29 Dose: 10 mg Loratadine (Claritin) 10 mg PO DAILY PRN PRN Reason: Allergies Lorazepam (Ativan) 1 mg IV Q6H PRN PRN Reason: Other Magnesium Sulfate (Pharmacy To Dose - Magnesium Replacement) 1 dose .XX ASDIRECTED [facility] Metoprolol Tartrate (Lopressor) 5 mg IVPUSH Q4H PRN PRN Reason: Tachycardia Ondansetron HCl (Zofran) 4 mg IV Q6H PRN PRN Reason: Nausea/Vomiting Potassium Chloride (Pharmacy To Dose - Potassium Replacement) 1 dose .XX ASDIRECTED [facility] Sodium Chloride (Saline Flush) 10 ml FLUSH ONETIME PRN PRN Reason: IV FLUSH Last Admin: 02/25/17 14:59 Dose: 10 ml Temazepam (Restoril) 30 mg PO BEDTIME PRN PRN Reason: Sleep Last Admin: 07/15/16 21:43 Dose: 30 mg Discontinued Medications Diatrizoate Meglum/Diatrizoate Sod (Gastrografin 37%) 90 ml PO ONETIME ONE Stop: 07/12/16 14:44 Last Admin: 07/12/16 14:58 Dose: 90 ml Hydromorphone HCl (Dilaudid) 0.5 mg IVPUSH ONETIME ONE Stop: 07/12/16 13:21 Last Admin: 07/12/16 13:27 Dose: 0.5 mg Hydromorphone HCl (Dilaudid) 0.5 mg IVPUSH ONETIME ONE Stop: 07/12/16 14:20 Last Admin: 07/12/16 14:24 Dose: 0.5 mg Hydromorphone HCl (Dilaudid) 0.52 mg IVPUSH ONETIME ONE Stop: 07/12/16 17:46 Last Admin: 07/13/16 12:28 Dose: Not Given Hydromorphone HCl (Dilaudid) 0.5 mg IVPUSH ONETIME ONE Stop: 07/12/16 17:49 Last Admin: 07/12/16 17:53 Dose: 0.5 mg Hydromorphone HCl (Dilaudid) 0.5 mg IVPUSH Q2H PRN PRN Reason: Pain (severe 7-10) Stop: 07/16/16 23:59 Last Admin: 07/14/16 22:22 Dose: 0.5 mg Sodium Chloride (Normal Saline) 1,000 mls @ 999 mls/hr IV ONETIME ONE Stop: 07/12/16 14:19 Last Admin: 07/12/16 13:27 Dose: 999 mls/hr Metronidazole 500 mg/ Premix 100 mls @ 100 mls/hr IV ONETIME ONE Stop: 07/12/16 19:05 Last Admin: 07/12/16 18:17 Dose: 100 mls/hr Levofloxacin/Dextrose 500 mg/ (Premix) 100 mls @ 100 mls/hr IV ONETIME ONE Stop: 07/12/16 19:11 Last Admin: 07/12/16 18:18 Dose: 100 mls/hr Iopamidol (Isovue-300 (61%)) 125 ml IVPUSH ONETIME ONE Stop: 07/12/16 14:44 Last Admin: 07/12/16 14:59 Dose: 125 ml Non-Formulary Medication (Sildenafil) 1 tab PO DAILY PRN PRN Reason: impotence Ondansetron HCl (Zofran) 4 mg IVPUSH ONETIME ONE Stop: 07/12/16 13:21 Last Admin: 07/12/16 13:27 Dose: 4 mg Potassium Chloride (Klor-Con M20) 40 meq PO ONETIME ONE Stop: 07/15/16 11:01 Last Admin: 07/15/16 11:24 Dose: 40 meq Temazepam (Restoril) 30 mg PO BEDTIME PRN PRN Reason: SLEEP Stop: 07/12/16 23:00 Last Admin: 07/12/16 21:21 Dose: 30 mg - Exam General: alert, oriented, cooperative, no acute distress HEENT: Mucous membr. moist/pink. No: Scleral icterus Lungs: Clear to auscultation, Normal respiratory effort Cardiovascular: regular rate, regular rhythm, no murmurs Abdomen: bowel sounds present, soft, no distension, tenderness (suprapubic, mild ; small abdominal hernia, superior to umbilicus, reducible, soft, nontender; no overlying skin change) Back Exam: normal inspection Extremities: no edema, normal pulses, no tenderness/swelling, no clubbing, no cyanosis, no calf tenderness Skin: warm, dry, intact Psy/Mental Status: alert, normal affect, normal mood Consult PN Assessment/Plan (1) Diverticulitis SNOMED Code(s): 323521779 Code(s): K57.92 - DVTRCLI OF INTEST, PART UNSP, W/O PERF OR ABSCESS W/O BLEED Current Visit: Yes Qualifiers: Diverticulitis site: large intestine Diverticulitis bleeding: without bleeding Diverticulitis complication: without perforation or abscess Qualified Code(s): K57.32 - Diverticulitis of large intestine without perforation or abscess without bleeding Problem List Initiated/Reviewed/Updated: Yes Plan: 61 yo M with diverticulitis of sigmoid colon with focal perforation and two small pockets of mesenteric air, no abscess - Patient improving - Continue IV abx Levquin/Flagyl (D5/14) - No need for surgical intervention at this time, but will continue to monitor - Advance diet; clear liquids; consider regular tomorrow if tolerates liquid diet - WBC up slightly 12.56 from 11.34, CRP down to 17 from 27.8. Continue to monitor. -K 3.4, to be managed by hospitalist. Anya Paz NP General Surgery
[2016-07-16] MEDS: DULoxetine 30 MG Cap PO SCH (10:41)
[2016-07-16] MEDS: Lisinopril 10 MG Tab PO SCH (10:42)
[2016-07-16] MEDS: Hydrochlorothiazide 12.5 MG Cap PO SCH (10:42)
[2016-07-16] MEDS ORDERED: Temazepam 30 MG Cap PO PRN (13:10)
--- NOTE | 2016-07-16 13:58 | PCM.PN ---
<Justina Marquez M - Last Filed: 07/16/16 13:53> - General Info Date of Service: 07/16/16 Admission Dx/Problem (Free Text): Diverticulitis [place] is seen this morning resting comfortably in bed; just "drank some apple juice and it tasted really good"- settled well, no nausea. He is passing gas. Minimal abd pain, "nothing like it was". Was up and ambulatory this morning, doing well. B/P's have been up, fevers are improving, low grade overnight. Functional Status: Reports: pain controlled, tolerating diet (clear liquids as of this morning), ambulating, urinating. Denies: new symptoms - Review of Systems General: Reports: fever (low grade overnight but improving) HEENT: Reports: no symptoms Pulmonary: Reports: no symptoms Cardiovascular: Reports: no symptoms Gastrointestinal: Reports: Abdominal pain (mild- much improved), Other (no BM but is passing gas). Denies: Nausea Genitourinary: Reports: no symptoms Musculoskeletal: Reports: no symptoms Skin: Reports: no symptoms Neurological: Reports: no symptoms Psychiatric: Reports: no symptoms - Patient Data Vitals - most recent: Last Vital Signs Temp 99.0 F 07/16/16 11:41 Pulse 96 07/16/16 11:41 Resp 18 07/16/16 11:41 BP 154/94 H 07/16/16 11:41 Pulse Ox 99 07/16/16 11:41 Weight - most recent: 103.283 kg I&O - last 24 hours: Intake & Output 07/15/16 07/16/16 07/16/16 22:59 06:59 14:59 Intake Total 1573 1320 240 Output Total 550 Balance 1023 1320 240 Lab Results last 24 hrs: Laboratory Results - last 24 hr 07/16/16 07/16/16 Range/Units 05:14 05:14 Potassium 3.4 L (3.5-5.1) mEq/L C-Reactive Protein 17.2 H* (<1.0) mg/dL Med Orders - Current: Current Medications Acetaminophen (Tylenol) 650 mg PO Q4H PRN PRN Reason: Pain (Mild 1-3)/fever Acetaminophen/Hydrocodone Bitart ([place] 325-5 Mg) 1 tab PO Q4H PRN PRN Reason: Pain (moderate 4-6) Last Admin: 07/16/16 11:50 Dose: 1 tab Albuterol (Proventil Neb Soln) 2.5 mg NEB Q2H PRN PRN Reason: Shortness Of Breath/wheezing Duloxetine HCl (Cymbalta) 60 mg PO DAILY [facility] Last Admin: 07/16/16 10:41 Dose: 60 mg Flunisolide (Nasalide Nasal [place]) 0 ml NASBOTH DAILY PRN PRN Reason: Allergies Hydrochlorothiazide (Hydrochlorothiazide) 25 mg PO DAILY [facility] Hydromorphone HCl (Dilaudid) 0.5 mg IVPUSH Q2H PRN PRN Reason: Pain (severe 7-10) Stop: 07/16/16 23:59 Last Admin: 07/16/16 12:48 Dose: 0.5 mg Promethazine HCl 12.5 mg/ (Sodium Chloride) 50.5 mls @ 100 mls/hr IV Q6H PRN PRN Reason: Nausea/Vomiting Dextrose/Sodium Chloride (Dextrose 5%-Normal Saline) 1,000 mls @ 125 mls/hr IV ASDIRECTED [facility] Last Admin: 07/16/16 03:07 Dose: 125 mls/hr Levofloxacin/Dextrose 500 mg/ (Premix) 100 mls @ 100 mls/hr IV Q24H [facility] Last Admin: 07/15/16 18:55 Dose: 100 mls/hr Metronidazole 500 mg/ Premix 100 mls @ 100 mls/hr IV Q8H [facility] Last Admin: 07/16/16 10:42 Dose: 100 mls/hr Lisinopril (Prinivil) 20 mg PO DAILY [facility] Loratadine (Claritin) 10 mg PO DAILY PRN PRN Reason: Allergies Lorazepam (Ativan) 1 mg IV Q6H PRN PRN Reason: Other Metoprolol Tartrate (Lopressor) 5 mg IVPUSH Q4H PRN PRN Reason: Tachycardia Ondansetron HCl (Zofran) 4 mg IV Q6H PRN PRN Reason: Nausea/Vomiting Sodium Chloride (Saline Flush) 10 ml FLUSH ONETIME PRN PRN Reason: IV FLUSH Last Admin: 07/12/16 14:59 Dose: 10 ml Temazepam (Restoril) 30 mg PO BEDTIME PRN PRN Reason: Sleep Discontinued Medications Diatrizoate Meglum/Diatrizoate Sod (Gastrografin 37%) 90 ml PO ONETIME ONE Stop: 07/12/16 14:44 Last Admin: 07/12/16 14:58 Dose: 90 ml Hydrochlorothiazide (Hydrochlorothiazide) 12.5 mg PO DAILY [facility] Last Admin: 07/16/16 10:42 Dose: 12.5 mg Hydromorphone HCl (Dilaudid) 0.5 mg IVPUSH ONETIME ONE Stop: 07/12/16 13:21 Last Admin: 07/12/16 13:27 Dose: 0.5 mg Hydromorphone HCl (Dilaudid) 0.5 mg IVPUSH ONETIME ONE Stop: 07/12/16 14:20 Last Admin: 07/12/16 14:24 Dose: 0.5 mg Hydromorphone HCl (Dilaudid) 0.52 mg IVPUSH ONETIME ONE Stop: 07/12/16 17:46 Last Admin: 07/13/16 12:28 Dose: Not Given Hydromorphone HCl (Dilaudid) 0.5 mg IVPUSH ONETIME ONE Stop: 07/12/16 17:49 Last Admin: 07/12/16 17:53 Dose: 0.5 mg Hydromorphone HCl (Dilaudid) 0.5 mg IVPUSH Q2H PRN PRN Reason: Pain (severe 7-10) Stop: 07/16/16 23:59 Last Admin: 07/14/16 22:22 Dose: 0.5 mg Sodium Chloride (Normal Saline) 1,000 mls @ 999 mls/hr IV ONETIME ONE Stop: 07/12/16 14:19 Last Admin: 07/12/16 13:27 Dose: 999 mls/hr Metronidazole 500 mg/ Premix 100 mls @ 100 mls/hr IV ONETIME ONE Stop: 07/12/16 19:05 Last Admin: 07/12/16 18:17 Dose: 100 mls/hr Levofloxacin/Dextrose 500 mg/ (Premix) 100 mls @ 100 mls/hr IV ONETIME ONE Stop: 07/12/16 19:11 Last Admin: 07/12/16 18:18 Dose: 100 mls/hr Iopamidol (Isovue-300 (61%)) 125 ml IVPUSH ONETIME ONE Stop: 07/12/16 14:44 Last Admin: 07/12/16 14:59 Dose: 125 ml Lisinopril (Prinivil) 10 mg PO DAILY [facility] Last Admin: 07/16/16 10:42 Dose: 10 mg Magnesium Sulfate (Pharmacy To Dose - Magnesium Replacement) 1 dose .XX ASDIRECTED [facility] Non-Formulary Medication (Sildenafil) 1 tab PO DAILY PRN PRN Reason: impotence Ondansetron HCl (Zofran) 4 mg IVPUSH ONETIME ONE Stop: 07/12/16 13:21 Last Admin: 07/12/16 13:27 Dose: 4 mg Potassium Chloride (Pharmacy To Dose - Potassium Replacement) 1 dose .XX ASDIRECTED [facility] Potassium Chloride (Klor-Con M20) 40 meq PO ONETIME ONE Stop: 07/15/16 11:01 Last Admin: 07/15/16 11:24 Dose: 40 meq Temazepam (Restoril) 30 mg PO BEDTIME PRN PRN Reason: Sleep Last Admin: 07/15/16 21:43 Dose: 30 mg Temazepam (Restoril) 30 mg PO BEDTIME PRN PRN Reason: SLEEP Stop: 07/12/16 23:00 Last Admin: 07/12/16 21:21 Dose: 30 mg - Exam Quality Assessment: DVT prophylaxis General: alert, oriented, cooperative, no acute distress HEENT: Pupils equal, Pupils reactive, EOMI, Mucous membr. moist/pink Neck: supple Lungs: Clear to auscultation, Normal respiratory effort Cardiovascular: regular rate, regular rhythm Abdomen: bowel sounds present, soft, tenderness (diffuse/ worse to lower abd, LLQ, no rigidity). No: guarding (Male) Exam: Deferred Extremities: no edema, no calf tenderness Peripheral Pulses: 1+: dorsalis pedis (L), dorsalis pedis (R) Skin: warm, dry Neurological: no new focal deficit Psy/Mental Status: alert, normal affect, normal mood - Problem List & Annotations (1) Diverticulitis large intestine SNOMED Code(s): 0783288 Code(s): K57.32 - DVTRCLI OF LG INT W/O PERFORATION OR ABSCESS W/O BLEEDING Status: Acute Priority: High Current Visit: Yes Qualifiers: Diverticulitis bleeding: without bleeding (2) Hypokalemia SNOMED Code(s): 54524004 Code(s): E87.6 - HYPOKALEMIA Status: Acute Priority: High Current Visit : Yes - Problem List Review Problem List Initiated/Reviewed/Updated: Yes - My Orders Last 24 Hours: My Active Orders 07/16/16 13:47 BASIC METABOLIC PANEL,BMP [CHEM] Routine CBC WITH AUTO DIFF [HEME] Routine 07/16/16 14:00 Lisinopril [Prinivil] 20 mg PO DAILY 07/17/16 05:11 BASIC METABOLIC PANEL,BMP [CHEM] AM C-REACTIVE PROTEIN [CHEM] AM CBC WITH AUTO DIFF [HEME] AM 07/17/16 09:00 Hydrochlorothiazide 25 mg PO DAILY - Plan Plan:: Assessment/Plan: Acute Sigmoid Diverticulosis w/o Abscess - Carries a hx/o Diverticulosis - CRP improving day-to-day; WBC also improving - On Intravenous Levaquin and Flagyl - Bowel Rest, Supportive Care - Dr. Santacruz on-board for co-management- advanced diet to clear liquids this morning; tolerating well thus far. -Cont with ambulation Resolved: S/p Sinus Tachycardia - HR 106-116 - Follow up EKG Chronic: HTN-- b/p's elevated; will increase lisinopril/HCTZ to 20/25mg daily Seasonal Allergies- cont home meds Depression- cont home meds Plan: He is clinically stable--doing much better Continue current treatment Clear liquid diet this Am per Dr. Santacruz Routine AM Labs Encourage to ambulated TID-QID as tolerated IS Additional orders as above Code status: 1 <Gilda Gamino M - Last Filed: 07/16/16 16:17> - Patient Data Vitals - most recent: Last Vital Signs Temp 37.2 C 07/16/16 11:41 Pulse 96 07/16/16 11:41 Resp 18 07/16/16 11:41 BP 154/94 H 07/16/16 11:41 Pulse Ox 99 07/16/16 11:41 I&O - last 24 hours: Intake & Output 07/16/16 07/16/16 07/16/16 06:59 14:59 22:59 Intake Total 8762 355 9275 Output Total 150 Balance 6824 970 8143 Lab Results last 24 hrs: Laboratory Results - last 24 hr 07/16/16 07/16/16 07/16/16 Range/Units 05:14 05:14 05:14 WBC 12.56 H (4.23-9.07) K/mm3 RBC 4.12 L (4.63-6.08) M/mm3 Hgb 12.2 L (13.7-17.5) gm/L Hct 36.2 L (40.1-51.0) % MCV 87.9 (79.0-92.2) fl MCH 29.6 (25.7-32.2) pg MCHC 33.7 (32.2-35.5) g/dl RDW Std Deviation 44.4 H (35.1-43.9) fL Plt Count 226 (163-337) K/mm3 MPV 9.5 (9.4-12.3) fl Neut % (Auto) 85.1 H (34.0-67.9) % Lymph % (Auto) 6.2 L (21.8-53.1) % Centre % (Auto) 6.4 (5.3-12.2) % Eos % (Auto) 1.5 (0.8-7.0) Baso % (Auto) 0.2 (0.1-1.2) % Neut # 10.68 H (1.78-5.38) K/mm3 Lymph # 0.78 L (1.32-3.57) K/mm3 Centre # 0.81 (0.30-0.82) K/mm3 Eos # 0.19 (0.04-0.54) K/mm3 Baso # 0.02 (0.01-0.08) K/mm3 Manual Slide Review Normal smear Sodium (136-145) mEq/L Potassium 3.4 L (3.5-5.1) mEq/L Chloride (98-107) mEq/L Carbon Dioxide (21-32) mEq/L Anion Gap (5-15) BUN (7-18) mg/dL Creatinine (0.7-1.3) mg/dL Est Cr Clr Drug Dosing mL/min Estimated GFR (MDRD) (>60) mL/min BUN/Creatinine Ratio (14-18) Glucose (80-115) mg/dL Calcium (8.5-10.1) mg/dL C-Reactive Protein 17.2 H* (<1.0) mg/dL 07/16/16 Range/Units 05:14 WBC (4.23-9.07) K/mm3 RBC (4.63-6.08) M/mm3 Hgb (13.7-17.5) gm/L Hct (40.1-51.0) % MCV (79.0-92.2) fl MCH (25.7-32.2) pg MCHC (32.2-35.5) g/dl RDW Std Deviation (35.1-43.9) fL Plt Count (163-337) K/mm3 MPV (9.4-12.3) fl Neut % (Auto) (34.0-67.9) % Lymph % (Auto) (21.8-53.1) % Centre % (Auto) (5.3-12.2) % Eos % (Auto) (0.8-7.0) Baso % (Auto) (0.1-1.2) % Neut # (1.78-5.38) K/mm3 Lymph # (1.32-3.57) K/mm3 Centre # (0.30-0.82) K/mm3 Eos # (0.04-0.54) K/mm3 Baso # (0.01-0.08) K/mm3 Manual Slide Review Sodium 137 (136-145) mEq/L Potassium 3.4 L (3.5-5.1) mEq/L Chloride 102 (98-107) mEq/L Carbon Dioxide 23 (21-32) mEq/L Anion Gap 15.4 H (5-15) BUN 7 (7-18) mg/dL Creatinine 0.8 (0.7-1.3) mg/dL Est Cr Clr Drug Dosing 100.66 mL/min Estimated GFR (MDRD) > 60 (>60) mL/min BUN/Creatinine Ratio 8.8 L (14-18) Glucose 123 H (80-115) mg/dL Calcium 8.4 L (8.5-10.1) mg/dL C-Reactive Protein (<1.0) mg/dL Med Orders - Current: Current Medications Acetaminophen (Tylenol) 650 mg PO Q4H PRN PRN Reason: Pain (Mild 1-3)/fever Acetaminophen/Hydrocodone Bitart ([place] 325-5 Mg) 1 tab PO Q4H PRN PRN Reason: Pain (moderate 4-6) Last Admin: 07/16/16 11:50 Dose: 1 tab Albuterol (Proventil Neb Soln) 2.5 mg NEB Q2H PRN PRN Reason: Shortness Of Breath/wheezing Duloxetine HCl (Cymbalta) 60 mg PO DAILY [facility] Last Admin: 07/16/16 10:41 Dose: 60 mg Flunisolide (Nasalide Nasal [place]) 0 ml NASBOTH DAILY PRN PRN Reason: Allergies Hydrochlorothiazide (Hydrochlorothiazide) 25 mg PO DAILY [facility] Hydromorphone HCl (Dilaudid) 0.5 mg IVPUSH Q2H PRN PRN Reason: Pain (severe 7-10) Stop: 07/16/16 23:59 Last Admin: 07/16/16 12:48 Dose: 0.5 mg Promethazine HCl 12.5 mg/ (Sodium Chloride) 50.5 mls @ 100 mls/hr IV Q6H PRN PRN Reason: Nausea/Vomiting Levofloxacin/Dextrose 500 mg/ (Premix) 100 mls @ 100 mls/hr IV Q24H [facility] Last Admin: 07/15/16 18:55 Dose: 100 mls/hr Metronidazole 500 mg/ Premix 100 mls @ 100 mls/hr IV Q8H [facility] Last Admin: 07/16/16 10:42 Dose: 100 mls/hr Lisinopril (Prinivil) 20 mg PO DAILY [facility] Last Admin: 07/16/16 15:19 Dose: Not Given Loratadine (Claritin) 10 mg PO DAILY PRN PRN Reason: Allergies Lorazepam (Ativan) 1 mg IV Q6H PRN PRN Reason: Other Metoprolol Tartrate (Lopressor) 5 mg IVPUSH Q4H PRN PRN Reason: Tachycardia Ondansetron HCl (Zofran) 4 mg IV Q6H PRN PRN Reason: Nausea/Vomiting Sodium Chloride (Saline Flush) 10 ml FLUSH ONETIME PRN PRN Reason: IV FLUSH Last Admin: 07/12/16 14:59 Dose: 10 ml Temazepam (Restoril) 30 mg PO BEDTIME PRN PRN Reason: Sleep Discontinued Medications Diatrizoate Meglum/Diatrizoate Sod (Gastrografin 37%) 90 ml PO ONETIME ONE Stop: 07/12/16 14:44 Last Admin: 07/12/16 14:58 Dose: 90 ml Hydrochlorothiazide (Hydrochlorothiazide) 12.5 mg PO DAILY [facility] Last Admin: 07/16/16 10:42 Dose: 12.5 mg Hydromorphone HCl (Dilaudid) 0.5 mg IVPUSH ONETIME ONE Stop: 07/12/16 13:21 Last Admin: 07/12/16 13:27 Dose: 0.5 mg Hydromorphone HCl (Dilaudid) 0.5 mg IVPUSH ONETIME ONE Stop: 07/12/16 14:20 Last Admin: 07/12/16 14:24 Dose: 0.5 mg Hydromorphone HCl (Dilaudid) 0.52 mg IVPUSH ONETIME ONE Stop: 07/12/16 17:46 Last Admin: 07/13/16 12:28 Dose: Not Given Hydromorphone HCl (Dilaudid) 0.5 mg IVPUSH ONETIME ONE Stop: 07/12/16 17:49 Last Admin: 07/12/16 17:53 Dose: 0.5 mg Hydromorphone HCl (Dilaudid) 0.5 mg IVPUSH Q2H PRN PRN Reason: Pain (severe 7-10) Stop: 07/16/16 23:59 Last Admin: 07/14/16 22:22 Dose: 0.5 mg Sodium Chloride (Normal Saline) 1,000 mls @ 999 mls/hr IV ONETIME ONE Stop: 07/12/16 14:19 Last Admin: 07/12/16 13:27 Dose: 999 mls/hr Metronidazole 500 mg/ Premix 100 mls @ 100 mls/hr IV ONETIME ONE Stop: 07/12/16 19:05 Last Admin: 07/12/16 18:17 Dose: 100 mls/hr Levofloxacin/Dextrose 500 mg/ (Premix) 100 mls @ 100 mls/hr IV ONETIME ONE Stop: 07/12/16 19:11 Last Admin: 07/12/16 18:18 Dose: 100 mls/hr Dextrose/Sodium Chloride (Dextrose 5%-Normal Saline) 1,000 mls @ 125 mls/hr IV ASDIRECTED [facility] Last Admin: 07/16/16 03:07 Dose: 125 mls/hr Iopamidol (Isovue-300 (61%)) 125 ml IVPUSH ONETIME ONE Stop: 07/12/16 14:44 Last Admin: 07/12/16 14:59 Dose: 125 ml Lisinopril (Prinivil) 10 mg PO DAILY [facility] Last Admin: 07/16/16 10:42 Dose: 10 mg Magnesium Sulfate (Pharmacy To Dose - Magnesium Replacement) 1 dose .XX ASDIRECTED [facility] Non-Formulary Medication (Sildenafil) 1 tab PO DAILY PRN PRN Reason: impotence Ondansetron HCl (Zofran) 4 mg IVPUSH ONETIME ONE Stop: 07/12/16 13:21 Last Admin: 07/12/16 13:27 Dose: 4 mg Potassium Chloride (Pharmacy To Dose - Potassium Replacement) 1 dose .XX ASDIRECTED [facility] Potassium Chloride (Klor-Con M20) 40 meq PO ONETIME ONE Stop: 07/15/16 11:01 Last Admin: 07/15/16 11:24 Dose: 40 meq Temazepam (Restoril) 30 mg PO BEDTIME PRN PRN Reason: Sleep Last Admin: 07/15/16 21:43 Dose: 30 mg Temazepam (Restoril) 30 mg PO BEDTIME PRN PRN Reason: SLEEP Stop: 07/12/16 23:00 Last Admin: 07/12/16 21:21 Dose: 30 mg - Plan Plan:: Agree with above, advance diet as tolerated.
[2016-07-16] MEDS: Lisinopril 20 MG Tab PO SCH (15:19)
[2016-07-16] MEDS: Levofloxacin/Dextrose 5%-Water 500 MG in Premix Bag 1 BAG IV SCH (17:06)
[2016-07-17] MEDS: Acetaminophen/HYDROcodone 325-5 MG Tab PO PRN ×2 (03:25→10:05)
[2016-07-17] MEDS: metroNIDAZOLE/Normal Saline 500 MG in Premix Bag 1 BAG IV SCH ×2 (03:25→10:06)
--- NOTE | 2016-07-17 07:08 | PCM.CONSN ---
- General Info Date of Service: 07/17/16 Admission Dx/Problem (Free Text): Diverticulitis - Review of Systems Systems Review Comment:: Pain seems worse, sharp intermittent pain Low grade temps overnight - Patient Data Vitals - most recent: Last Vital Signs Temp 98.8 F 07/17/16 03:29 Pulse 97 07/17/16 03:29 Resp 16 07/17/16 03:29 BP 137/91 H 07/17/16 03:29 Pulse Ox 98 07/17/16 03:29 Weight - most recent: 225 lb 3.2 oz I&O - last 24 hours: Intake & Output 07/16/16 07/17/16 07/17/16 22:59 06:59 14:59 Intake Total 2379 900 Output Total 150 600 Balance 2229 300 Lab Results last 24 hrs: Laboratory Results - last 24 hr 07/16/16 07/16/16 07/16/16 Range/Units 05:14 05:14 05:14 WBC 12.56 H (4.23-9.07) K/mm3 RBC 4.12 L (4.63-6.08) M/mm3 Hgb 12.2 L (13.7-17.5) gm/L Hct 36.2 L (40.1-51.0) % MCV 87.9 (79.0-92.2) fl MCH 29.6 (25.7-32.2) pg MCHC 33.7 (32.2-35.5) g/dl RDW Std Deviation 44.4 H (35.1-43.9) fL Plt Count 226 (163-337) K/mm3 MPV 9.5 (9.4-12.3) fl Neut % (Auto) 85.1 H (34.0-67.9) % Lymph % (Auto) 6.2 L (21.8-53.1) % Union % (Auto) 6.4 (5.3-12.2) % Eos % (Auto) 1.5 (0.8-7.0) Baso % (Auto) 0.2 (0.1-1.2) % Neut # 10.68 H (1.78-5.38) K/mm3 Lymph # 0.78 L (1.32-3.57) K/mm3 Union # 0.81 (0.30-0.82) K/mm3 Eos # 0.19 (0.04-0.54) K/mm3 Baso # 0.02 (0.01-0.08) K/mm3 Manual Slide Review Normal smear Sodium 137 (136-145) mEq/L Potassium 3.4 L 3.4 L (3.5-5.1) mEq/L Chloride 102 (98-107) mEq/L Carbon Dioxide 23 (21-32) mEq/L Anion Gap 15.4 H (5-15) BUN 7 (7-18) mg/dL Creatinine 0.8 (0.7-1.3) mg/dL Est Cr Clr Drug Dosing 100.66 mL/min Estimated GFR (MDRD) > 60 (>60) mL/min BUN/Creatinine Ratio 8.8 L (14-18) Glucose 123 H (80-115) mg/dL Calcium 8.4 L (8.5-10.1) mg/dL 07/17/16 07/17/16 Range/Units 05:39 05:39 WBC 17.32 H (4.23-9.07) K/mm3 RBC 4.12 L (4.63-6.08) M/mm3 Hgb 12.4 L (13.7-17.5) gm/L Hct 35.9 L (40.1-51.0) % MCV 87.1 (79.0-92.2) fl MCH 30.1 (25.7-32.2) pg MCHC 34.5 (32.2-35.5) g/dl RDW Std Deviation 44.0 H (35.1-43.9) fL Plt Count 228 (163-337) K/mm3 MPV 9.0 L (9.4-12.3) fl Neut % (Auto) 84.5 H (34.0-67.9) % Lymph % (Auto) 7.3 L (21.8-53.1) % Union % (Auto) 6.6 (5.3-12.2) % Eos % (Auto) 0.9 (0.8-7.0) Baso % (Auto) 0.1 (0.1-1.2) % Neut # 14.63 H (1.78-5.38) K/mm3 Lymph # 1.27 L (1.32-3.57) K/mm3 Union # 1.14 H (0.30-0.82) K/mm3 Eos # 0.15 (0.04-0.54) K/mm3 Baso # 0.02 (0.01-0.08) K/mm3 Manual Slide Review Abnormal smear Sodium 135 L (136-145) mEq/L Potassium 3.2 L (3.5-5.1) mEq/L Chloride 99 (98-107) mEq/L Carbon Dioxide 26 (21-32) mEq/L Anion Gap 13.2 (5-15) BUN 7 (7-18) mg/dL Creatinine 0.8 (0.7-1.3) mg/dL Est Cr Clr Drug Dosing 100.66 mL/min Estimated GFR (MDRD) > 60 (>60) mL/min BUN/Creatinine Ratio 8.8 L (14-18) Glucose 124 H (80-115) mg/dL Calcium 8.5 (8.5-10.1) mg/dL Med Orders - Current: Current Medications Acetaminophen (Tylenol) 650 mg PO Q4H PRN PRN Reason: Pain (Mild 1-3)/fever Acetaminophen/Hydrocodone Bitart (Tensed 325-5 Mg) 1 tab PO Q4H PRN PRN Reason: Pain (moderate 4-6) Last Admin: 07/17/16 03:25 Dose: 1 tab Albuterol (Proventil Neb Soln) 2.5 mg NEB Q2H PRN PRN Reason: Shortness Of Breath/wheezing Duloxetine HCl (Cymbalta) 60 mg PO DAILY [facility] Last Admin: 07/16/16 10:41 Dose: 60 mg Flunisolide (Nasalide Nasal [place]) 0 ml NASBOTH DAILY PRN PRN Reason: Allergies Hydrochlorothiazide (Hydrochlorothiazide) 25 mg PO DAILY [facility] Promethazine HCl 12.5 mg/ (Sodium Chloride) 50.5 mls @ 100 mls/hr IV Q6H PRN PRN Reason: Nausea/Vomiting Levofloxacin/Dextrose 500 mg/ (Premix) 100 mls @ 100 mls/hr IV Q24H [facility] Last Admin: 07/16/16 17:06 Dose: 100 mls/hr Metronidazole 500 mg/ Premix 100 mls @ 100 mls/hr IV Q8H [facility] Last Admin: 07/17/16 03:25 Dose: 100 mls/hr Lisinopril (Prinivil) 20 mg PO DAILY [facility] Last Admin: 07/16/16 15:19 Dose: Not Given Loratadine (Claritin) 10 mg PO DAILY PRN PRN Reason: Allergies Lorazepam (Ativan) 1 mg IV Q6H PRN PRN Reason: Other Metoprolol Tartrate (Lopressor) 5 mg IVPUSH Q4H PRN PRN Reason: Tachycardia Ondansetron HCl (Zofran) 4 mg IV Q6H PRN PRN Reason: Nausea/Vomiting Sodium Chloride (Saline Flush) 10 ml FLUSH ONETIME PRN PRN Reason: IV FLUSH Last Admin: 07/12/16 14:59 Dose: 10 ml Temazepam (Restoril) 30 mg PO BEDTIME PRN PRN Reason: Sleep Last Admin: 07/16/16 20:59 Dose: 30 mg Discontinued Medications Diatrizoate Meglum/Diatrizoate Sod (Gastrografin 37%) 90 ml PO ONETIME ONE Stop: 07/12/16 14:44 Last Admin: 07/12/16 14:58 Dose: 90 ml Hydrochlorothiazide (Hydrochlorothiazide) 12.5 mg PO DAILY [facility] Last Admin: 07/16/16 10:42 Dose: 12.5 mg Hydromorphone HCl (Dilaudid) 0.5 mg IVPUSH ONETIME ONE Stop: 07/12/16 13:21 Last Admin: 07/12/16 13:27 Dose: 0.5 mg Hydromorphone HCl (Dilaudid) 0.5 mg IVPUSH ONETIME ONE Stop: 07/12/16 14:20 Last Admin: 07/12/16 14:24 Dose: 0.5 mg Hydromorphone HCl (Dilaudid) 0.52 mg IVPUSH ONETIME ONE Stop: 07/12/16 17:46 Last Admin: 07/13/16 12:28 Dose: Not Given Hydromorphone HCl (Dilaudid) 0.5 mg IVPUSH ONETIME ONE Stop: 07/12/16 17:49 Last Admin: 07/12/16 17:53 Dose: 0.5 mg Hydromorphone HCl (Dilaudid) 0.5 mg IVPUSH Q2H PRN PRN Reason: Pain (severe 7-10) Stop: 07/16/16 23:59 Last Admin: 07/14/16 22:22 Dose: 0.5 mg Hydromorphone HCl (Dilaudid) 0.5 mg IVPUSH Q2H PRN PRN Reason: Pain (severe 7-10) Stop: 07/16/16 23:59 Last Admin: 07/16/16 12:48 Dose: 0.5 mg Sodium Chloride (Normal Saline) 1,000 mls @ 999 mls/hr IV ONETIME ONE Stop: 07/12/16 14:19 Last Admin: 07/12/16 13:27 Dose: 999 mls/hr Metronidazole 500 mg/ Premix 100 mls @ 100 mls/hr IV ONETIME ONE Stop: 07/12/16 19:05 Last Admin: 07/12/16 18:17 Dose: 100 mls/hr Levofloxacin/Dextrose 500 mg/ (Premix) 100 mls @ 100 mls/hr IV ONETIME ONE Stop: 07/12/16 19:11 Last Admin: 07/12/16 18:18 Dose: 100 mls/hr Dextrose/Sodium Chloride (Dextrose 5%-Normal Saline) 1,000 mls @ 125 mls/hr IV ASDIRECTED [facility] Last Admin: 07/16/16 03:07 Dose: 125 mls/hr Iopamidol (Isovue-300 (61%)) 125 ml IVPUSH ONETIME ONE Stop: 07/12/16 14:44 Last Admin: 07/12/16 14:59 Dose: 125 ml Lisinopril (Prinivil) 10 mg PO DAILY [facility] Last Admin: 07/16/16 10:42 Dose: 10 mg Magnesium Sulfate (Pharmacy To Dose - Magnesium Replacement) 1 dose .XX ASDIRECTED [facility] Non-Formulary Medication (Sildenafil) 1 tab PO DAILY PRN PRN Reason: impotence Ondansetron HCl (Zofran) 4 mg IVPUSH ONETIME ONE Stop: 07/12/16 13:21 Last Admin: 07/12/16 13:27 Dose: 4 mg Potassium Chloride (Pharmacy To Dose - Potassium Replacement) 1 dose .XX ASDIRECTED [facility] Potassium Chloride (Klor-Con M20) 40 meq PO ONETIME ONE Stop: 07/15/16 11:01 Last Admin: 07/15/16 11:24 Dose: 40 meq Temazepam (Restoril) 30 mg PO BEDTIME PRN PRN Reason: Sleep Last Admin: 07/15/16 21:43 Dose: 30 mg Temazepam (Restoril) 30 mg PO BEDTIME PRN PRN Reason: SLEEP Stop: 07/12/16 23:00 Last Admin: 07/12/16 21:21 Dose: 30 mg - Exam General: alert, oriented, cooperative, mild distress HEENT: Mucous membr. moist/pink. No: Scleral icterus Lungs: Clear to auscultation, Normal respiratory effort Cardiovascular: regular rate, regular rhythm Abdomen: soft, guarding (mild voluntary ), tenderness (lower abdomen). No: rigidity, rebound Extremities: no edema, no tenderness/swelling. No: edema Skin: warm, dry, intact Neurological: no new focal deficit Psy/Mental Status: alert, normal affect, normal mood Consult PN Assessment/Plan (1) Diverticulitis large intestine SNOMED Code(s): 1363087 Code(s): K57.32 - DVTRCLI OF LG INT W/O PERFORATION OR ABSCESS W/O BLEEDING Priority: High Qualifiers: Diverticulitis bleeding: without bleeding Problem List Initiated/Reviewed/Updated: Yes My Orders last 24 hours: My Active Orders 07/16/16 Breakfast Clear Liquid Diet [DIET] 07/17/16 07:05 Abdomen Pelvis w Cont [CT] Routine 07/17/16 Lunch Nothing per Oral Now Diet [DIET] Plan: 61 yo M with diverticulitis of sigmoid colon with focal perforation and two small pockets of mesenteric air, no abscess Concern for possible developing abscess with increasing WBC and temperature curve. CT Abd/Pelvis today to R/O abscess NPO Consider PICC placement to start TPN as has been NPO for nearly 7 days (Since Wednesday 07/12)
[2016-07-17] MEDS ORDERED: Sodium Chloride 0.9% 10 ML Syringe FLUSH PRN (08:04)
[2016-07-17] MEDS ORDERED: Iopamidol 755 Mg/ML 100 ML Bottle IVPUSH ONE (08:04)
[2016-07-17] MEDS ORDERED: Diatrizoate Meglumine/Diatrizoate Sodium 37% 120 ML Bottle PO ONE (08:04)
[2016-07-17] MEDS ORDERED: Iopamidol 612 MG/ML 150 ML Bottle IVPUSH ONE (08:05)
[2016-07-17] MEDS ORDERED: Sodium Chloride 0.9% 100 ML IV SCH (08:15)
--- NOTE | 2016-07-17 08:54 | PCM.PN ---
<Justina Marquez - Last Filed: 07/17/16 10:52> - General Info Date of Service: 07/17/16 Admission Dx/Problem (Free Text): Diverticulitis Functional Status: Reports: ambulating, urinating. Denies: pain controlled ( Pain is under control but worse than yesterday; worsening overnight again and has been steady), tolerating diet (clear liquids yesterday with increased pain; WBC and CRP up again this am) - Review of Systems General: Reports: fever (temp is trending upward) HEENT: Reports: no symptoms Pulmonary: Reports: no symptoms Cardiovascular: Reports: no symptoms Gastrointestinal: Reports: Abdominal pain, Flatus, Nausea (mild) Genitourinary: Reports: no symptoms Musculoskeletal: Reports: no symptoms Skin: Reports: no symptoms Neurological: Reports: no symptoms Psychiatric: Reports: no symptoms - Patient Data Vitals - most recent: Last Vital Signs Temp 98.8 F 07/17/16 03:29 Pulse 97 07/17/16 03:29 Resp 16 07/17/16 03:29 BP 137/91 H 07/17/16 03:29 Pulse Ox 98 07/17/16 03:29 Weight - most recent: 102.149 kg I&O - last 24 hours: Intake & Output 07/16/16 07/17/16 07/17/16 22:59 06:59 14:59 Intake Total 2379 900 Output Total 150 600 Balance 2229 300 Lab Results last 24 hrs: Laboratory Results - last 24 hr 07/16/16 07/16/16 07/16/16 Range/Units 05:14 05:14 05:14 WBC 12.56 H (4.23-9.07) K/mm3 RBC 4.12 L (4.63-6.08) M/mm3 Hgb 12.2 L (13.7-17.5) gm/L Hct 36.2 L (40.1-51.0) % MCV 87.9 (79.0-92.2) fl MCH 29.6 (25.7-32.2) pg MCHC 33.7 (32.2-35.5) g/dl RDW Std Deviation 44.4 H (35.1-43.9) fL Plt Count 226 (163-337) K/mm3 MPV 9.5 (9.4-12.3) fl Neut % (Auto) 85.1 H (34.0-67.9) % Lymph % (Auto) 6.2 L (21.8-53.1) % [place] % (Auto) 6.4 (5.3-12.2) % Eos % (Auto) 1.5 (0.8-7.0) Baso % (Auto) 0.2 (0.1-1.2) % Neut # 10.68 H (1.78-5.38) K/mm3 Lymph # 0.78 L (1.32-3.57) K/mm3 [place] # 0.81 (0.30-0.82) K/mm3 Eos # 0.19 (0.04-0.54) K/mm3 Baso # 0.02 (0.01-0.08) K/mm3 Manual Slide Review Normal smear Sodium 137 (136-145) mEq/L Potassium 3.4 L 3.4 L (3.5-5.1) mEq/L Chloride 102 (98-107) mEq/L Carbon Dioxide 23 (21-32) mEq/L Anion Gap 15.4 H (5-15) BUN 7 (7-18) mg/dL Creatinine 0.8 (0.7-1.3) mg/dL Est Cr Clr Drug Dosing 100.66 mL/min Estimated GFR (MDRD) > 60 (>60) mL/min BUN/Creatinine Ratio 8.8 L (14-18) Glucose 123 H (80-115) mg/dL Calcium 8.4 L (8.5-10.1) mg/dL C-Reactive Protein (<1.0) mg/dL 07/17/16 07/17/16 Range/Units 05:39 05:39 WBC 17.32 H (4.23-9.07) K/mm3 RBC 4.12 L (4.63-6.08) M/mm3 Hgb 12.4 L (13.7-17.5) gm/L Hct 35.9 L (40.1-51.0) % MCV 87.1 (79.0-92.2) fl MCH 30.1 (25.7-32.2) pg MCHC 34.5 (32.2-35.5) g/dl RDW Std Deviation 44.0 H (35.1-43.9) fL Plt Count 228 (163-337) K/mm3 MPV 9.0 L (9.4-12.3) fl Neut % (Auto) 84.5 H (34.0-67.9) % Lymph % (Auto) 7.3 L (21.8-53.1) % [place] % (Auto) 6.6 (5.3-12.2) % Eos % (Auto) 0.9 (0.8-7.0) Baso % (Auto) 0.1 (0.1-1.2) % Neut # 14.63 H (1.78-5.38) K/mm3 Lymph # 1.27 L (1.32-3.57) K/mm3 [place] # 1.14 H (0.30-0.82) K/mm3 Eos # 0.15 (0.04-0.54) K/mm3 Baso # 0.02 (0.01-0.08) K/mm3 Manual Slide Review Abnormal smear Sodium 135 L (136-145) mEq/L Potassium 3.2 L (3.5-5.1) mEq/L Chloride 99 (98-107) mEq/L Carbon Dioxide 26 (21-32) mEq/L Anion Gap 13.2 (5-15) BUN 7 (7-18) mg/dL Creatinine 0.8 (0.7-1.3) mg/dL Est Cr Clr Drug Dosing 100.66 mL/min Estimated GFR (MDRD) > 60 (>60) mL/min BUN/Creatinine Ratio 8.8 L (14-18) Glucose 124 H (80-115) mg/dL Calcium 8.5 (8.5-10.1) mg/dL C-Reactive Protein 17.4 H* (<1.0) mg/dL Med Orders - Current: Current Medications Acetaminophen (Tylenol) 650 mg PO Q4H PRN PRN Reason: Pain (Mild 1-3)/fever Acetaminophen/Hydrocodone Bitart ([place] 325-5 Mg) 1 tab PO Q4H PRN PRN Reason: Pain (moderate 4-6) Last Admin: 07/17/16 03:25 Dose: 1 tab Albuterol (Proventil Neb Soln) 2.5 mg NEB Q2H PRN PRN Reason: Shortness Of Breath/wheezing Duloxetine HCl (Cymbalta) 60 mg PO DAILY [facility] Last Admin: 07/16/16 10:41 Dose: 60 mg Flunisolide (Nasalide Nasal [place]) 0 ml NASBOTH DAILY PRN PRN Reason: Allergies Hydrochlorothiazide (Hydrochlorothiazide) 25 mg PO DAILY [facility] Promethazine HCl 12.5 mg/ (Sodium Chloride) 50.5 mls @ 100 mls/hr IV Q6H PRN PRN Reason: Nausea/Vomiting Levofloxacin/Dextrose 500 mg/ (Premix) 100 mls @ 100 mls/hr IV Q24H [facility] Last Admin: 07/16/16 17:06 Dose: 100 mls/hr Metronidazole 500 mg/ Premix 100 mls @ 100 mls/hr IV Q8H [facility] Last Admin: 07/17/16 03:25 Dose: 100 mls/hr Sodium Chloride (Normal Saline) 100 mls @ 80 mls/hr IV ASDIRECTED [facility] Lisinopril (Prinivil) 20 mg PO DAILY [facility] Last Admin: 07/16/16 15:19 Dose: Not Given Loratadine (Claritin) 10 mg PO DAILY PRN PRN Reason: Allergies Lorazepam (Ativan) 1 mg IV Q6H PRN PRN Reason: Other Metoprolol Tartrate (Lopressor) 5 mg IVPUSH Q4H PRN PRN Reason: Tachycardia Ondansetron HCl (Zofran) 4 mg IV Q6H PRN PRN Reason: Nausea/Vomiting Sodium Chloride (Saline Flush) 10 ml FLUSH ONETIME PRN PRN Reason: IV FLUSH Last Admin: 07/12/16 14:59 Dose: 10 ml Sodium Chloride (Saline Flush) 10 ml FLUSH ONETIME PRN PRN Reason: IV FLUSH Temazepam (Restoril) 30 mg PO BEDTIME PRN PRN Reason: Sleep Last Admin: 07/16/16 20:59 Dose: 30 mg Discontinued Medications Diatrizoate Meglum/Diatrizoate Sod (Gastrografin 37%) 90 ml PO ONETIME ONE Stop: 07/12/16 14:44 Last Admin: 07/12/16 14:58 Dose: 90 ml Diatrizoate Meglum/Diatrizoate Sod (Gastrografin 37%) 120 ml PO ONETIME ONE Stop: 07/17/16 08:05 Hydrochlorothiazide (Hydrochlorothiazide) 12.5 mg PO DAILY [facility] Last Admin: 07/16/16 10:42 Dose: 12.5 mg Hydromorphone HCl (Dilaudid) 0.5 mg IVPUSH ONETIME ONE Stop: 07/12/16 13:21 Last Admin: 07/12/16 13:27 Dose: 0.5 mg Hydromorphone HCl (Dilaudid) 0.5 mg IVPUSH ONETIME ONE Stop: 07/12/16 14:20 Last Admin: 07/12/16 14:24 Dose: 0.5 mg Hydromorphone HCl (Dilaudid) 0.52 mg IVPUSH ONETIME ONE Stop: 07/12/16 17:46 Last Admin: 07/13/16 12:28 Dose: Not Given Hydromorphone HCl (Dilaudid) 0.5 mg IVPUSH ONETIME ONE Stop: 07/12/16 17:49 Last Admin: 07/12/16 17:53 Dose: 0.5 mg Hydromorphone HCl (Dilaudid) 0.5 mg IVPUSH Q2H PRN PRN Reason: Pain (severe 7-10) Stop: 07/16/16 23:59 Last Admin: 07/14/16 22:22 Dose: 0.5 mg Hydromorphone HCl (Dilaudid) 0.5 mg IVPUSH Q2H PRN PRN Reason: Pain (severe 7-10) Stop: 07/16/16 23:59 Last Admin: 07/16/16 12:48 Dose: 0.5 mg Sodium Chloride (Normal Saline) 1,000 mls @ 999 mls/hr IV ONETIME ONE Stop: 07/12/16 14:19 Last Admin: 07/12/16 13:27 Dose: 999 mls/hr Metronidazole 500 mg/ Premix 100 mls @ 100 mls/hr IV ONETIME ONE Stop: 07/12/16 19:05 Last Admin: 07/12/16 18:17 Dose: 100 mls/hr Levofloxacin/Dextrose 500 mg/ (Premix) 100 mls @ 100 mls/hr IV ONETIME ONE Stop: 07/12/16 19:11 Last Admin: 07/12/16 18:18 Dose: 100 mls/hr Dextrose/Sodium Chloride (Dextrose 5%-Normal Saline) 1,000 mls @ 125 mls/hr IV ASDIRECTED [facility] Last Admin: 07/16/16 03:07 Dose: 125 mls/hr Iopamidol (Isovue-300 (61%)) 125 ml IVPUSH ONETIME ONE Stop: 07/12/16 14:44 Last Admin: 07/12/16 14:59 Dose: 125 ml Iopamidol (Isovue-300 (61%)) 150 ml IVPUSH ONETIME ONE Stop: 07/17/16 08:06 Lisinopril (Prinivil) 10 mg PO DAILY [facility] Last Admin: 07/16/16 10:42 Dose: 10 mg Magnesium Sulfate (Pharmacy To Dose - Magnesium Replacement) 1 dose .XX ASDIRECTED [facility] Non-Formulary Medication (Sildenafil) 1 tab PO DAILY PRN PRN Reason: impotence Ondansetron HCl (Zofran) 4 mg IVPUSH ONETIME ONE Stop: 07/12/16 13:21 Last Admin: 07/12/16 13:27 Dose: 4 mg Potassium Chloride (Pharmacy To Dose - Potassium Replacement) 1 dose .XX ASDIRECTED [facility] Potassium Chloride (Klor-Con M20) 40 meq PO ONETIME ONE Stop: 07/15/16 11:01 Last Admin: 07/15/16 11:24 Dose: 40 meq Temazepam (Restoril) 30 mg PO BEDTIME PRN PRN Reason: Sleep Last Admin: 07/15/16 21:43 Dose: 30 mg Temazepam (Restoril) 30 mg PO BEDTIME PRN PRN Reason: SLEEP Stop: 07/12/16 23:00 Last Admin: 07/12/16 21:21 Dose: 30 mg - Exam Quality Assessment: DVT prophylaxis General: alert, oriented, cooperative, no acute distress HEENT: Pupils equal, Pupils reactive, EOMI, Mucous membr. moist/pink Neck: supple Lungs: Clear to auscultation, Normal respiratory effort Cardiovascular: regular rate, regular rhythm Abdomen: bowel sounds present, tenderness, distension (firm in comparison to yesterday; tender diffusely today- worse than yesterday) (Male) Exam: Deferred Extremities: no edema, no calf tenderness Peripheral Pulses: 1+: dorsalis pedis (L), dorsalis pedis (R) Skin: warm, dry, intact Neurological: no new focal deficit Psy/Mental Status: alert, normal affect, normal mood - Problem List & Annotations (1) Diverticulitis large intestine SNOMED Code(s): 0557517 Code(s): K57.32 - DVTRCLI OF LG INT W/O PERFORATION OR ABSCESS W/O BLEEDING Status: Acute Priority: High Qualifiers: Diverticulitis bleeding: without bleeding (2) Hypokalemia SNOMED Code(s): 50319244 Code(s): E87.6 - HYPOKALEMIA Status: Acute Priority: High - Problem List Review Problem List Initiated/Reviewed/Updated: Yes - My Orders Last 24 Hours: My Active Orders 07/16/16 14:00 Lisinopril [Prinivil] 20 mg PO DAILY 07/16/16 14:05 IS (RT) [RT Incentive Spirometry] [RC] Q2HWA 07/17/16 09:00 Hydrochlorothiazide 25 mg PO DAILY - Plan Plan:: Assessment/Plan: Acute Sigmoid Diverticulosis - Carries a hx/o Diverticulosis - CRP, WBC, pain worsening today - On Intravenous Levaquin and Flagyl - Bowel Rest, Supportive Care - Dr. Santacruz on-board for co-management- Spoke with her early this morning; patient made NPO due to worsening of pain/labs. She will order CT abd/pelvis and develop further POC; concern for abscess or possible peritonitis. Further direction for POC after results of CT scan and direction per Dr. Santacruz. -Cont with ambulation Resolved: S/p Sinus Tachycardia - HR 106-116 - Follow up EKG-- unchanged, NSR Chronic: HTN-- b/p's elevated; will increase lisinopril/HCTZ to 20/25mg daily Seasonal Allergies- cont home meds Depression- cont home meds Plan: He is clinically stable but is having worsening pain, WBC and CRP worsened today - plan above Continue current treatment NPO per Dr. Santacruz Routine AM Labs Encourage to ambulated as tolerated, if exacerbates pain, will be bedrest IS Additional orders as above Code status: 1 <Gilda Gamino - Last Filed: 07/22/16 15:54> - General Info Admission Dx/Problem (Free Text): POC for eval of abscess, Dr Santacruz to assess. See above for more details, await radiographic imaging. - Patient Data Vitals - most recent: Last Vital Signs Temp 37.8 C 07/17/16 09:42 Pulse 93 07/17/16 09:42 Resp 14 07/17/16 09:42 BP 143/82 H 07/17/16 10:04 Pulse Ox 95 07/17/16 09:42 Med Orders - Current: Current Medications Discontinued Medications Acetaminophen (Tylenol) 650 mg PO Q4H PRN PRN Reason: Pain (Mild 1-3)/fever Acetaminophen/Hydrocodone Bitart ([place] 325-5 Mg) 1 tab PO Q4H PRN PRN Reason: Pain (moderate 4-6) Last Admin: 07/17/16 10:05 Dose: 1 tab Albuterol (Proventil Neb Soln) 2.5 mg NEB Q2H PRN PRN Reason: Shortness Of Breath/wheezing Diatrizoate Meglum/Diatrizoate Sod (Gastrografin 37%) 90 ml PO ONETIME ONE Stop: 07/12/16 14:44 Last Admin: 07/12/16 14:58 Dose: 90 ml Diatrizoate Meglum/Diatrizoate Sod (Gastrografin 37%) 120 ml PO ONETIME ONE Stop: 07/17/16 08:05 Last Admin: 07/17/16 08:53 Dose: 90 ml Duloxetine HCl (Cymbalta) 60 mg PO DAILY [facility] Last Admin: 07/17/16 10:05 Dose: 60 mg Flunisolide (Nasalide Nasal [place]) 0 ml NASBOTH DAILY PRN PRN Reason: Allergies Hydrochlorothiazide (Hydrochlorothiazide) 12.5 mg PO DAILY [facility] Last Admin: 07/16/16 10:42 Dose: 12.5 mg Hydrochlorothiazide (Hydrochlorothiazide) 25 mg PO DAILY [facility] Last Admin: 07/17/16 10:04 Dose: 25 mg Hydromorphone HCl (Dilaudid) 0.5 mg IVPUSH ONETIME ONE Stop: 07/12/16 13:21 Last Admin: 07/12/16 13:27 Dose: 0.5 mg Hydromorphone HCl (Dilaudid) 0.5 mg IVPUSH ONETIME ONE Stop: 07/12/16 14:20 Last Admin: 07/12/16 14:24 Dose: 0.5 mg Hydromorphone HCl (Dilaudid) 0.52 mg IVPUSH ONETIME ONE Stop: 07/12/16 17:46 Last Admin: 07/13/16 12:28 Dose: Not Given Hydromorphone HCl (Dilaudid) 0.5 mg IVPUSH ONETIME ONE Stop: 07/12/16 17:49 Last Admin: 07/12/16 17:53 Dose: 0.5 mg Hydromorphone HCl (Dilaudid) 0.5 mg IVPUSH Q2H PRN PRN Reason: Pain (severe 7-10) Stop: 07/16/16 23:59 Last Admin: 07/14/16 22:22 Dose: 0.5 mg Hydromorphone HCl (Dilaudid) 0.5 mg IVPUSH Q2H PRN PRN Reason: Pain (severe 7-10) Stop: 07/16/16 23:59 Last Admin: 07/16/16 12:48 Dose: 0.5 mg Hydromorphone HCl (Dilaudid) 1 mg IVPUSH Q2H PRN PRN Reason: Pain Last Admin: 07/17/16 12:11 Dose: 1 mg Sodium Chloride (Normal Saline) 1,000 mls @ 999 mls/hr IV ONETIME ONE Stop: 07/12/16 14:19 Last Admin: 07/12/16 13:27 Dose: 999 mls/hr Metronidazole 500 mg/ Premix 100 mls @ 100 mls/hr IV ONETIME ONE Stop: 07/12/16 19:05 Last Admin: 07/12/16 18:17 Dose: 100 mls/hr Levofloxacin/Dextrose 500 mg/ (Premix) 100 mls @ 100 mls/hr IV ONETIME ONE Stop: 07/12/16 19:11 Last Admin: 07/12/16 18:18 Dose: 100 mls/hr Promethazine HCl 12.5 mg/ (Sodium Chloride) 50.5 mls @ 100 mls/hr IV Q6H PRN PRN Reason: Nausea/Vomiting Dextrose/Sodium Chloride (Dextrose 5%-Normal Saline) 1,000 mls @ 125 mls/hr IV ASDIRECTED [facility] Last Admin: 07/16/16 03:07 Dose: 125 mls/hr Levofloxacin/Dextrose 500 mg/ (Premix) 100 mls @ 100 mls/hr IV Q24H [facility] Last Admin: 07/16/16 17:06 Dose: 100 mls/hr Metronidazole 500 mg/ Premix 100 mls @ 100 mls/hr IV Q8H [facility] Last Admin: 07/17/16 10:06 Dose: 100 mls/hr Sodium Chloride (Normal Saline) 100 mls @ 80 mls/hr IV ASDIRECTED [facility] Last Admin: 07/17/16 08:54 Dose: 80 mls/hr Potassium Chloride/Dextrose/Sod Cl (D5 Ns With 20 Meq Kcl) 1,000 mls @ 100 mls/ hr IV ASDIRECTED [facility] Last Admin: 07/17/16 12:17 Dose: 100 mls/hr Iopamidol (Isovue-300 (61%)) 125 ml IVPUSH ONETIME ONE Stop: 07/12/16 14:44 Last Admin: 07/12/16 14:59 Dose: 125 ml Iopamidol (Isovue-300 (61%)) 150 ml IVPUSH ONETIME ONE Stop: 07/17/16 08:06 Last Admin: 07/17/16 08:52 Dose: 125 ml Lisinopril (Prinivil) 10 mg PO DAILY [facility] Last Admin: 07/16/16 10:42 Dose: 10 mg Lisinopril (Prinivil) 20 mg PO DAILY [facility] Last Admin: 07/17/16 10:04 Dose: 20 mg Loratadine (Claritin) 10 mg PO DAILY PRN PRN Reason: Allergies Lorazepam (Ativan) 1 mg IV Q6H PRN PRN Reason: Other Magnesium Sulfate (Pharmacy To Dose - Magnesium Replacement) 1 dose .XX ASDIRECTED [facility] Metoprolol Tartrate (Lopressor) 5 mg IVPUSH Q4H PRN PRN Reason: Tachycardia Non-Formulary Medication (Sildenafil) 1 tab PO DAILY PRN PRN Reason: impotence Ondansetron HCl (Zofran) 4 mg IVPUSH ONETIME ONE Stop: 07/12/16 13:21 Last Admin: 07/12/16 13:27 Dose: 4 mg Ondansetron HCl (Zofran) 4 mg IV Q6H PRN PRN Reason: Nausea/Vomiting Last Admin: 07/17/16 12:13 Dose: 4 mg Potassium Chloride (Pharmacy To Dose - Potassium Replacement) 1 dose .XX ASDIRECTED [facility] Potassium Chloride (Klor-Con M20) 40 meq PO ONETIME ONE Stop: 07/15/16 11:01 Last Admin: 07/15/16 11:24 Dose: 40 meq Potassium Chloride (Klor-Con M20) 40 meq PO ONETIME ONE Stop: 07/17/16 10:51 Last Admin: 07/17/16 12:17 Dose: 40 meq Sodium Chloride (Saline Flush) 10 ml FLUSH ONETIME PRN PRN Reason: IV FLUSH Last Admin: 07/12/16 14:59 Dose: 10 ml Sodium Chloride (Saline Flush) 10 ml FLUSH ONETIME PRN PRN Reason: IV FLUSH Last Admin: 07/17/16 08:52 Dose: 10 ml Temazepam (Restoril) 30 mg PO BEDTIME PRN PRN Reason: Sleep Last Admin: 07/15/16 21:43 Dose: 30 mg Temazepam (Restoril) 30 mg PO BEDTIME PRN PRN Reason: SLEEP Stop: 07/12/16 23:00 Last Admin: 07/12/16 21:21 Dose: 30 mg Temazepam (Restoril) 30 mg PO BEDTIME PRN PRN Reason: Sleep Last Admin: 07/16/16 20:59 Dose: 30 mg
[2016-07-17] MEDS ORDERED: Hydrochlorothiazide 25 MG Tab PO SCH (09:00)
[2016-07-17 09:44] VITALS: BP 143/82
--- NOTE | 2016-07-17 09:47 | PCM.CONSN ---
- General Info Date of Service: 07/17/16 - Patient Data Vitals - most recent: Last Vital Signs Temp 100.0 F 07/17/16 09:42 Pulse 93 07/17/16 09:42 Resp 14 07/17/16 09:42 BP 143/82 H 07/17/16 09:42 Pulse Ox 95 07/17/16 09:42 Weight - most recent: 225 lb 3.2 oz I&O - last 24 hours: Intake & Output 07/16/16 07/17/16 07/17/16 22:59 06:59 14:59 Intake Total 2379 900 Output Total 150 600 Balance 2229 300 Lab Results last 24 hrs: Laboratory Results - last 24 hr 07/16/16 07/16/16 07/16/16 Range/Units 05:14 05:14 05:14 WBC 12.56 H (4.23-9.07) K/mm3 RBC 4.12 L (4.63-6.08) M/mm3 Hgb 12.2 L (13.7-17.5) gm/L Hct 36.2 L (40.1-51.0) % MCV 87.9 (79.0-92.2) fl MCH 29.6 (25.7-32.2) pg MCHC 33.7 (32.2-35.5) g/dl RDW Std Deviation 44.4 H (35.1-43.9) fL Plt Count 226 (163-337) K/mm3 MPV 9.5 (9.4-12.3) fl Neut % (Auto) 85.1 H (34.0-67.9) % Lymph % (Auto) 6.2 L (21.8-53.1) % [place] % (Auto) 6.4 (5.3-12.2) % Eos % (Auto) 1.5 (0.8-7.0) Baso % (Auto) 0.2 (0.1-1.2) % Neut # 10.68 H (1.78-5.38) K/mm3 Lymph # 0.78 L (1.32-3.57) K/mm3 [place] # 0.81 (0.30-0.82) K/mm3 Eos # 0.19 (0.04-0.54) K/mm3 Baso # 0.02 (0.01-0.08) K/mm3 Manual Slide Review Normal smear Sodium 137 (136-145) mEq/L Potassium 3.4 L 3.4 L (3.5-5.1) mEq/L Chloride 102 (98-107) mEq/L Carbon Dioxide 23 (21-32) mEq/L Anion Gap 15.4 H (5-15) BUN 7 (7-18) mg/dL Creatinine 0.8 (0.7-1.3) mg/dL Est Cr Clr Drug Dosing 100.66 mL/min Estimated GFR (MDRD) > 60 (>60) mL/min BUN/Creatinine Ratio 8.8 L (14-18) Glucose 123 H (80-115) mg/dL Calcium 8.4 L (8.5-10.1) mg/dL C-Reactive Protein (<1.0) mg/dL 07/17/16 07/17/16 Range/Units 05:39 05:39 WBC 17.32 H (4.23-9.07) K/mm3 RBC 4.12 L (4.63-6.08) M/mm3 Hgb 12.4 L (13.7-17.5) gm/L Hct 35.9 L (40.1-51.0) % MCV 87.1 (79.0-92.2) fl MCH 30.1 (25.7-32.2) pg MCHC 34.5 (32.2-35.5) g/dl RDW Std Deviation 44.0 H (35.1-43.9) fL Plt Count 228 (163-337) K/mm3 MPV 9.0 L (9.4-12.3) fl Neut % (Auto) 84.5 H (34.0-67.9) % Lymph % (Auto) 7.3 L (21.8-53.1) % [place] % (Auto) 6.6 (5.3-12.2) % Eos % (Auto) 0.9 (0.8-7.0) Baso % (Auto) 0.1 (0.1-1.2) % Neut # 14.63 H (1.78-5.38) K/mm3 Lymph # 1.27 L (1.32-3.57) K/mm3 [place] # 1.14 H (0.30-0.82) K/mm3 Eos # 0.15 (0.04-0.54) K/mm3 Baso # 0.02 (0.01-0.08) K/mm3 Manual Slide Review Abnormal smear Sodium 135 L (136-145) mEq/L Potassium 3.2 L (3.5-5.1) mEq/L Chloride 99 (98-107) mEq/L Carbon Dioxide 26 (21-32) mEq/L Anion Gap 13.2 (5-15) BUN 7 (7-18) mg/dL Creatinine 0.8 (0.7-1.3) mg/dL Est Cr Clr Drug Dosing 100.66 mL/min Estimated GFR (MDRD) > 60 (>60) mL/min BUN/Creatinine Ratio 8.8 L (14-18) Glucose 124 H (80-115) mg/dL Calcium 8.5 (8.5-10.1) mg/dL C-Reactive Protein 17.4 H* (<1.0) mg/dL Med Orders - Current: Current Medications Acetaminophen (Tylenol) 650 mg PO Q4H PRN PRN Reason: Pain (Mild 1-3)/fever Acetaminophen/Hydrocodone Bitart ([place] 325-5 Mg) 1 tab PO Q4H PRN PRN Reason: Pain (moderate 4-6) Last Admin: 07/17/16 03:25 Dose: 1 tab Albuterol (Proventil Neb Soln) 2.5 mg NEB Q2H PRN PRN Reason: Shortness Of Breath/wheezing Duloxetine HCl (Cymbalta) 60 mg PO DAILY [facility] Last Admin: 07/16/16 10:41 Dose: 60 mg Flunisolide (Nasalide Nasal [place]) 0 ml NASBOTH DAILY PRN PRN Reason: Allergies Hydrochlorothiazide (Hydrochlorothiazide) 25 mg PO DAILY [facility] Promethazine HCl 12.5 mg/ (Sodium Chloride) 50.5 mls @ 100 mls/hr IV Q6H PRN PRN Reason: Nausea/Vomiting Levofloxacin/Dextrose 500 mg/ (Premix) 100 mls @ 100 mls/hr IV Q24H [facility] Last Admin: 07/16/16 17:06 Dose: 100 mls/hr Metronidazole 500 mg/ Premix 100 mls @ 100 mls/hr IV Q8H [facility] Last Admin: 07/17/16 03:25 Dose: 100 mls/hr Sodium Chloride (Normal Saline) 100 mls @ 80 mls/hr IV ASDIRECTED [facility] Last Admin: 07/17/16 08:54 Dose: 80 mls/hr Lisinopril (Prinivil) 20 mg PO DAILY [facility] Last Admin: 07/16/16 15:19 Dose: Not Given Loratadine (Claritin) 10 mg PO DAILY PRN PRN Reason: Allergies Lorazepam (Ativan) 1 mg IV Q6H PRN PRN Reason: Other Metoprolol Tartrate (Lopressor) 5 mg IVPUSH Q4H PRN PRN Reason: Tachycardia Ondansetron HCl (Zofran) 4 mg IV Q6H PRN PRN Reason: Nausea/Vomiting Sodium Chloride (Saline Flush) 10 ml FLUSH ONETIME PRN PRN Reason: IV FLUSH Last Admin: 07/12/16 14:59 Dose: 10 ml Sodium Chloride (Saline Flush) 10 ml FLUSH ONETIME PRN PRN Reason: IV FLUSH Last Admin: 07/17/16 08:52 Dose: 10 ml Temazepam (Restoril) 30 mg PO BEDTIME PRN PRN Reason: Sleep Last Admin: 07/16/16 20:59 Dose: 30 mg Discontinued Medications Diatrizoate Meglum/Diatrizoate Sod (Gastrografin 37%) 90 ml PO ONETIME ONE Stop: 07/12/16 14:44 Last Admin: 07/12/16 14:58 Dose: 90 ml Diatrizoate Meglum/Diatrizoate Sod (Gastrografin 37%) 120 ml PO ONETIME ONE Stop: 07/17/16 08:05 Last Admin: 07/17/16 08:53 Dose: 90 ml Hydrochlorothiazide (Hydrochlorothiazide) 12.5 mg PO DAILY [facility] Last Admin: 07/16/16 10:42 Dose: 12.5 mg Hydromorphone HCl (Dilaudid) 0.5 mg IVPUSH ONETIME ONE Stop: 07/12/16 13:21 Last Admin: 07/12/16 13:27 Dose: 0.5 mg Hydromorphone HCl (Dilaudid) 0.5 mg IVPUSH ONETIME ONE Stop: 07/12/16 14:20 Last Admin: 07/12/16 14:24 Dose: 0.5 mg Hydromorphone HCl (Dilaudid) 0.52 mg IVPUSH ONETIME ONE Stop: 07/12/16 17:46 Last Admin: 07/13/16 12:28 Dose: Not Given Hydromorphone HCl (Dilaudid) 0.5 mg IVPUSH ONETIME ONE Stop: 07/12/16 17:49 Last Admin: 07/12/16 17:53 Dose: 0.5 mg Hydromorphone HCl (Dilaudid) 0.5 mg IVPUSH Q2H PRN PRN Reason: Pain (severe 7-10) Stop: 07/16/16 23:59 Last Admin: 07/14/16 22:22 Dose: 0.5 mg Hydromorphone HCl (Dilaudid) 0.5 mg IVPUSH Q2H PRN PRN Reason: Pain (severe 7-10) Stop: 07/16/16 23:59 Last Admin: 07/16/16 12:48 Dose: 0.5 mg Sodium Chloride (Normal Saline) 1,000 mls @ 999 mls/hr IV ONETIME ONE Stop: 07/12/16 14:19 Last Admin: 07/12/16 13:27 Dose: 999 mls/hr Metronidazole 500 mg/ Premix 100 mls @ 100 mls/hr IV ONETIME ONE Stop: 07/12/16 19:05 Last Admin: 07/12/16 18:17 Dose: 100 mls/hr Levofloxacin/Dextrose 500 mg/ (Premix) 100 mls @ 100 mls/hr IV ONETIME ONE Stop: 07/12/16 19:11 Last Admin: 07/12/16 18:18 Dose: 100 mls/hr Dextrose/Sodium Chloride (Dextrose 5%-Normal Saline) 1,000 mls @ 125 mls/hr IV ASDIRECTED [facility] Last Admin: 07/16/16 03:07 Dose: 125 mls/hr Iopamidol (Isovue-300 (61%)) 125 ml IVPUSH ONETIME ONE Stop: 07/12/16 14:44 Last Admin: 07/12/16 14:59 Dose: 125 ml Iopamidol (Isovue-300 (61%)) 150 ml IVPUSH ONETIME ONE Stop: 07/17/16 08:06 Last Admin: 07/17/16 08:52 Dose: 125 ml Lisinopril (Prinivil) 10 mg PO DAILY [facility] Last Admin: 07/16/16 10:42 Dose: 10 mg Magnesium Sulfate (Pharmacy To Dose - Magnesium Replacement) 1 dose .XX ASDIRECTED [facility] Non-Formulary Medication (Sildenafil) 1 tab PO DAILY PRN PRN Reason: impotence Ondansetron HCl (Zofran) 4 mg IVPUSH ONETIME ONE Stop: 07/12/16 13:21 Last Admin: 07/12/16 13:27 Dose: 4 mg Potassium Chloride (Pharmacy To Dose - Potassium Replacement) 1 dose .XX ASDIRECTED [facility] Potassium Chloride (Klor-Con M20) 40 meq PO ONETIME ONE Stop: 07/15/16 11:01 Last Admin: 07/15/16 11:24 Dose: 40 meq Temazepam (Restoril) 30 mg PO BEDTIME PRN PRN Reason: Sleep Last Admin: 07/15/16 21:43 Dose: 30 mg Temazepam (Restoril) 30 mg PO BEDTIME PRN PRN Reason: SLEEP Stop: 07/12/16 23:00 Last Admin: 07/12/16 21:21 Dose: 30 mg Consult PN Assessment/Plan (1) Diverticulitis large intestine SNOMED Code(s): 0962771 Code(s): K57.32 - DVTRCLI OF LG INT W/O PERFORATION OR ABSCESS W/O BLEEDING Priority: High Current Visit: Yes Qualifiers: Diverticulitis bleeding: without bleeding My Orders last 24 hours: My Active Orders 07/17/16 07:05 Abdomen Pelvis w Cont [CT] Routine 07/17/16 Lunch Nothing per Oral Now Diet [DIET]
--- NOTE | 2016-07-17 10:01 | CT ---
CT abdomen and pelvis Technique: Multiple axial sections were obtained from above the dome of the diaphragm inferiorly through the pubic symphysis. Intravenous and oral contrast was utilized. Comparison: Previous CT exam of 07/12/16. Findings: Mild atelectasis noted within both lung bases. Small low density lesions are identified within the liver which are most likely due to multiple small cysts which are seen on prior study and are stable. Gallbladder shows no calcified gallstones. Spleen appears within normal limits. Adrenal glands show no nodule. Pancreas is within normal limits. Kidneys show symmetric contrast enhancement without hydronephrosis or mass. Aorta shows no aneurysmal dilatation. No retroperitoneal adenopathy is seen. Abnormality identified within the pelvis showing an air-fluid level. This finding measures approximately 6.3 cm x 4.6 cm in AP and transverse dimensions respectively. Small amount of additional mesenteric air is seen within this area. Wall thickening seen within the sigmoid colon. Increased surrounding inflammatory change around the colon and abscess is seen. Diverticuli are also seen within this area. Findings are compatible with worsening diverticulitis with diverticular abscess. No additional pelvic abnormality is identified. There is some small bowel wall thickening being seen in the area of the diverticular abscess. No small bowel dilatation is seen. Appendix is seen which appears normal. Delayed images show contrast within the distal ureters and within the bladder. Small fat-containing left inguinal hernia is noted. Bone window settings show scattered degenerative change throughout the spine. Impression: 1. Increasing change of diverticulitis from prior exam. This includes increasing inflammatory change, increasing bowel wall thickening within the sigmoid colon, diverticular abscess measuring up to 6.3 cm and bowel wall thickening within adjacent small bowel. Other extraluminal air is also seen in this area within the mesenteric fat. 2. Other incidental findings as noted above. Diagnostic code #3
[2016-07-17] MEDS: Lisinopril 20 MG Tab PO SCH (10:04)
[2016-07-17] MEDS: DULoxetine 30 MG Cap PO SCH (10:05)
[2016-07-17] MEDS ORDERED: Potassium Chloride 20 MEQ Tab.ER PO ONE (10:50)
--- NOTE | 2016-07-17 11:01 | PCM.DCSUM1 ---
<Justina Marquez - Last Filed: 07/17/16 11:23> Discharge Summary - Hospital Course Free Text/Narrative:: This is a 61 yo white male with past medical hx/o HTN and ED who comes in with complaints of abdominal pain. He was initially seen at [facility] and was sent over for further eval. His pain is localized mostly on lower abdomen with some radiation to the right lower quadrant. He has not had anything to eat. His last meal was yesterday wherein he ate "a lot of popcorn". He denies any nausea or vomiting. He is passing gas and his last bowel movement was 2 hrs ago after he took the contrast for imaging study. Patient carries an hx/o diverticulosis. He has had colonoscopy 4-5 times now. His most recent was about a year ago done in [place] by Dr. Stone. His initial work up in ED shows a chemistry remarkable for Na 135, AG 16.8, BS 148, Total bili 1.4 and CRP 25. FLTs and Lipase are normal. Abdomen/Pelvis CT scan shows sigmoid diveritculitis with some extraluminal gas being seen within the mesentary. Dr. Santacruz was consulted in ED for co-management. Patient is full code. Patient was admitted; placed on IV levaquin and flagyl, IVF for hydration. He was NPO x 3 days, diet advanced to clear liquid- that evening abd pain returned and worsened. The following morning WBC, CRP were increased, temp bumped up to 100.0. Dr. Santacruz ordered repeat CT scan of abdomen showing 6.3cm diverticular abscess within the pelvis. Recommendations for interventional radiology for drainage. This was reviewed with patient by both Dr. Santacruz and myself. Patient will need to be transferred to [place] for this, he is in agreement. Hospitalist service with [facility] is accepting, Dr. Bedolla, with Dr. Valencia, surgeon whom I also spoke to, will be consulting. Patient will be transferred via ambulance as he is not stable medically to go by private vehicle. He is discharged in stable condition. - Discharge Data Discharge Date: 07/17/16 (admit date 07/13/16) Discharge Disposition: DC/Tfer to Acute Hospital 02 Condition: Good - Discharge Diagnosis/Problem(s) (1) Diverticulitis large intestine SNOMED Code(s): 1190754 ICD Code: K57.32 - DVTRCLI OF LG INT W/O PERFORATION OR ABSCESS W/O BLEEDING Status: Acute Priority: High Qualifiers: Diverticulitis bleeding: without bleeding (2) Hypokalemia SNOMED Code(s): 74769842 ICD Code: E87.6 - HYPOKALEMIA Status: Acute Priority: High - Patient Summary/Data Operative Procedure(s) Performed: None Complications: development of diverticular abscess, within pelvis, 6.3cm Consults: General Surgery, Dr. Santacruz Labs Pending at D/C: None Recommended Follow-up Testing/Procedures: Interventional Radiology for drainage of diverticular abscess Planned Operative Procedure(s) after DC: As noted above; IR for abscess drainage Hospital Course: As above - Patient Instructions Diet: NPO Activity: Bedrest Driving: Do Not Drive - Discharge Plan Home Medications: Home Meds DULoxetine [Cymbalta] 60 mg PO DAILY 07/12/16 [History] Loratadine [Claritin] 1 tab PO DAILY PRN 07/12/16 [History] Moexipril/Hydrochlorothiazide [Moexipril-HCTZ 15-12.5 MG] 1 tab PO DAILY [History] Sildenafil [Viagra] 1 tab PO DAILY PRN 07/12/16 [History] Triamcinolone Acetonide [Nasacort AQ [place]] 16.5 gm NASBOTH DAILY PRN 07/12/16 [ History] Patient Handouts: Diverticulitis, [id number] Forms: ED Department Discharge Referrals: Sarita Bob MD [Primary Care Provider] - - Discharge Summary/Plan Comment DC Time >30 min.: Yes (40 min) - General Info Date of Service: 07/17/16 Admission Dx/Problem (Free Text: Diverticulitis Patient seen this morning with worsening abdominal pain; fever 100.0. Dr. Santacruz made NPO early this am due to elevated WBC, CRP and fever- repeat abd/ pelvis CT scan ordered to r/o abscess. Functional Status: Reports: pain controlled (with pain meds), urinating. Denies : tolerating diet (NPO) - Review of Systems General: Reports: fever HEENT: Reports: no symptoms Pulmonary: Reports: no symptoms Cardiovascular: Reports: no symptoms Gastrointestinal: Reports: Abdominal pain, Flatus, Nausea Genitourinary: Reports: no symptoms Musculoskeletal: Reports: no symptoms Skin: Reports: no symptoms Neurological: Reports: no symptoms Psychiatric: Reports: no symptoms - Patient Data Vitals - Most Recent: Last Vital Signs Temp 100.0 F 07/17/16 09:42 Pulse 93 07/17/16 09:42 Resp 14 07/17/16 09:42 BP 143/82 H 07/17/16 10:04 Pulse Ox 95 07/17/16 09:42 Weight - Most Recent: 102.149 kg I&O - Last 24 hours: Intake & Output 07/16/16 07/17/16 07/17/16 22:59 06:59 14:59 Intake Total 2379 900 Output Total 150 600 Balance 2229 300 Lab Results - Last 24 hrs: Laboratory Results - last 24 hr 07/16/16 07/16/16 07/16/16 Range/Units 05:14 05:14 05:14 WBC 12.56 H (4.23-9.07) K/mm3 RBC 4.12 L (4.63-6.08) M/mm3 Hgb 12.2 L (13.7-17.5) gm/L Hct 36.2 L (40.1-51.0) % MCV 87.9 (79.0-92.2) fl MCH 29.6 (25.7-32.2) pg MCHC 33.7 (32.2-35.5) g/dl RDW Std Deviation 44.4 H (35.1-43.9) fL Plt Count 226 (163-337) K/mm3 MPV 9.5 (9.4-12.3) fl Neut % (Auto) 85.1 H (34.0-67.9) % Lymph % (Auto) 6.2 L (21.8-53.1) % Saline % (Auto) 6.4 (5.3-12.2) % Eos % (Auto) 1.5 (0.8-7.0) Baso % (Auto) 0.2 (0.1-1.2) % Neut # 10.68 H (1.78-5.38) K/mm3 Lymph # 0.78 L (1.32-3.57) K/mm3 Saline # 0.81 (0.30-0.82) K/mm3 Eos # 0.19 (0.04-0.54) K/mm3 Baso # 0.02 (0.01-0.08) K/mm3 Manual Slide Review Normal smear Sodium 137 (136-145) mEq/L Potassium 3.4 L 3.4 L (3.5-5.1) mEq/L Chloride 102 (98-107) mEq/L Carbon Dioxide 23 (21-32) mEq/L Anion Gap 15.4 H (5-15) BUN 7 (7-18) mg/dL Creatinine 0.8 (0.7-1.3) mg/dL Est Cr Clr Drug Dosing 100.66 mL/min Estimated GFR (MDRD) > 60 (>60) mL/min BUN/Creatinine Ratio 8.8 L (14-18) Glucose 123 H (80-115) mg/dL Calcium 8.4 L (8.5-10.1) mg/dL C-Reactive Protein (<1.0) mg/dL 07/17/16 07/17/16 Range/Units 05:39 05:39 WBC 17.32 H (4.23-9.07) K/mm3 RBC 4.12 L (4.63-6.08) M/mm3 Hgb 12.4 L (13.7-17.5) gm/L Hct 35.9 L (40.1-51.0) % MCV 87.1 (79.0-92.2) fl MCH 30.1 (25.7-32.2) pg MCHC 34.5 (32.2-35.5) g/dl RDW Std Deviation 44.0 H (35.1-43.9) fL Plt Count 228 (163-337) K/mm3 MPV 9.0 L (9.4-12.3) fl Neut % (Auto) 84.5 H (34.0-67.9) % Lymph % (Auto) 7.3 L (21.8-53.1) % Saline % (Auto) 6.6 (5.3-12.2) % Eos % (Auto) 0.9 (0.8-7.0) Baso % (Auto) 0.1 (0.1-1.2) % Neut # 14.63 H (1.78-5.38) K/mm3 Lymph # 1.27 L (1.32-3.57) K/mm3 Saline # 1.14 H (0.30-0.82) K/mm3 Eos # 0.15 (0.04-0.54) K/mm3 Baso # 0.02 (0.01-0.08) K/mm3 Manual Slide Review Abnormal smear Sodium 135 L (136-145) mEq/L Potassium 3.2 L (3.5-5.1) mEq/L Chloride 99 (98-107) mEq/L Carbon Dioxide 26 (21-32) mEq/L Anion Gap 13.2 (5-15) BUN 7 (7-18) mg/dL Creatinine 0.8 (0.7-1.3) mg/dL Est Cr Clr Drug Dosing 100.66 mL/min Estimated GFR (MDRD) > 60 (>60) mL/min BUN/Creatinine Ratio 8.8 L (14-18) Glucose 124 H (80-115) mg/dL Calcium 8.5 (8.5-10.1) mg/dL C-Reactive Protein 17.4 H* (<1.0) mg/dL Med Orders - Current: Current Medications Acetaminophen (Tylenol) 650 mg PO Q4H PRN PRN Reason: Pain (Mild 1-3)/fever Acetaminophen/Hydrocodone Bitart ([place] 325-5 Mg) 1 tab PO Q4H PRN PRN Reason: Pain (moderate 4-6) Last Admin: 07/17/16 10:05 Dose: 1 tab Albuterol (Proventil Neb Soln) 2.5 mg NEB Q2H PRN PRN Reason: Shortness Of Breath/wheezing Duloxetine HCl (Cymbalta) 60 mg PO DAILY [facility] Last Admin: 07/17/16 10:05 Dose: 60 mg Flunisolide (Nasalide Nasal [place]) 0 ml NASBOTH DAILY PRN PRN Reason: Allergies Hydrochlorothiazide (Hydrochlorothiazide) 25 mg PO DAILY [facility] Last Admin: 07/17/16 10:04 Dose: 25 mg Promethazine HCl 12.5 mg/ (Sodium Chloride) 50.5 mls @ 100 mls/hr IV Q6H PRN PRN Reason: Nausea/Vomiting Levofloxacin/Dextrose 500 mg/ (Premix) 100 mls @ 100 mls/hr IV Q24H [facility] Last Admin: 07/16/16 17:06 Dose: 100 mls/hr Metronidazole 500 mg/ Premix 100 mls @ 100 mls/hr IV Q8H [facility] Last Admin: 07/17/16 10:06 Dose: 100 mls/hr Sodium Chloride (Normal Saline) 100 mls @ 80 mls/hr IV ASDIRECTED [facility] Last Admin: 07/17/16 08:54 Dose: 80 mls/hr Lisinopril (Prinivil) 20 mg PO DAILY [facility] Last Admin: 07/17/16 10:04 Dose: 20 mg Loratadine (Claritin) 10 mg PO DAILY PRN PRN Reason: Allergies Lorazepam (Ativan) 1 mg IV Q6H PRN PRN Reason: Other Metoprolol Tartrate (Lopressor) 5 mg IVPUSH Q4H PRN PRN Reason: Tachycardia Ondansetron HCl (Zofran) 4 mg IV Q6H PRN PRN Reason: Nausea/Vomiting Sodium Chloride (Saline Flush) 10 ml FLUSH ONETIME PRN PRN Reason: IV FLUSH Last Admin: 07/12/16 14:59 Dose: 10 ml Sodium Chloride (Saline Flush) 10 ml FLUSH ONETIME PRN PRN Reason: IV FLUSH Last Admin: 07/17/16 08:52 Dose: 10 ml Temazepam (Restoril) 30 mg PO BEDTIME PRN PRN Reason: Sleep Last Admin: 07/16/16 20:59 Dose: 30 mg Discontinued Medications Diatrizoate Meglum/Diatrizoate Sod (Gastrografin 37%) 90 ml PO ONETIME ONE Stop: 07/12/16 14:44 Last Admin: 07/12/16 14:58 Dose: 90 ml Diatrizoate Meglum/Diatrizoate Sod (Gastrografin 37%) 120 ml PO ONETIME ONE Stop: 07/17/16 08:05 Last Admin: 07/17/16 08:53 Dose: 90 ml Hydrochlorothiazide (Hydrochlorothiazide) 12.5 mg PO DAILY [facility] Last Admin: 07/16/16 10:42 Dose: 12.5 mg Hydromorphone HCl (Dilaudid) 0.5 mg IVPUSH ONETIME ONE Stop: 07/12/16 13:21 Last Admin: 07/12/16 13:27 Dose: 0.5 mg Hydromorphone HCl (Dilaudid) 0.5 mg IVPUSH ONETIME ONE Stop: 07/12/16 14:20 Last Admin: 07/12/16 14:24 Dose: 0.5 mg Hydromorphone HCl (Dilaudid) 0.52 mg IVPUSH ONETIME ONE Stop: 07/12/16 17:46 Last Admin: 07/13/16 12:28 Dose: Not Given Hydromorphone HCl (Dilaudid) 0.5 mg IVPUSH ONETIME ONE Stop: 07/12/16 17:49 Last Admin: 07/12/16 17:53 Dose: 0.5 mg Hydromorphone HCl (Dilaudid) 0.5 mg IVPUSH Q2H PRN PRN Reason: Pain (severe 7-10) Stop: 07/16/16 23:59 Last Admin: 07/14/16 22:22 Dose: 0.5 mg Hydromorphone HCl (Dilaudid) 0.5 mg IVPUSH Q2H PRN PRN Reason: Pain (severe 7-10) Stop: 07/16/16 23:59 Last Admin: 07/16/16 12:48 Dose: 0.5 mg Sodium Chloride (Normal Saline) 1,000 mls @ 999 mls/hr IV ONETIME ONE Stop: 07/12/16 14:19 Last Admin: 07/12/16 13:27 Dose: 999 mls/hr Metronidazole 500 mg/ Premix 100 mls @ 100 mls/hr IV ONETIME ONE Stop: 07/12/16 19:05 Last Admin: 07/12/16 18:17 Dose: 100 mls/hr Levofloxacin/Dextrose 500 mg/ (Premix) 100 mls @ 100 mls/hr IV ONETIME ONE Stop: 07/12/16 19:11 Last Admin: 07/12/16 18:18 Dose: 100 mls/hr Dextrose/Sodium Chloride (Dextrose 5%-Normal Saline) 1,000 mls @ 125 mls/hr IV ASDIRECTED [facility] Last Admin: 07/16/16 03:07 Dose: 125 mls/hr Iopamidol (Isovue-300 (61%)) 125 ml IVPUSH ONETIME ONE Stop: 07/12/16 14:44 Last Admin: 07/12/16 14:59 Dose: 125 ml Iopamidol (Isovue-300 (61%)) 150 ml IVPUSH ONETIME ONE Stop: 07/17/16 08:06 Last Admin: 07/17/16 08:52 Dose: 125 ml Lisinopril (Prinivil) 10 mg PO DAILY [facility] Last Admin: 07/16/16 10:42 Dose: 10 mg Magnesium Sulfate (Pharmacy To Dose - Magnesium Replacement) 1 dose .XX ASDIRECTED [facility] Non-Formulary Medication (Sildenafil) 1 tab PO DAILY PRN PRN Reason: impotence Ondansetron HCl (Zofran) 4 mg IVPUSH ONETIME ONE Stop: 07/12/16 13:21 Last Admin: 07/12/16 13:27 Dose: 4 mg Potassium Chloride (Pharmacy To Dose - Potassium Replacement) 1 dose .XX ASDIRECTED [facility] Potassium Chloride (Klor-Con M20) 40 meq PO ONETIME ONE Stop: 07/15/16 11:01 Last Admin: 07/15/16 11:24 Dose: 40 meq Potassium Chloride (Klor-Con M20) 40 meq PO ONETIME ONE Stop: 07/17/16 10:51 Temazepam (Restoril) 30 mg PO BEDTIME PRN PRN Reason: Sleep Last Admin: 07/15/16 21:43 Dose: 30 mg Temazepam (Restoril) 30 mg PO BEDTIME PRN PRN Reason: SLEEP Stop: 07/12/16 23:00 Last Admin: 07/12/16 21:21 Dose: 30 mg - Exam Quality Assessment: Reports: DVT prophylaxis General: Reports: alert, oriented, cooperative, no acute distress HEENT: Reports: Pupils equal, Pupils reactive, EOMI, Mucous membr. moist/pink Neck: Reports: supple Lungs: Reports: Clear to auscultation, Normal respiratory effort Cardiovascular: Reports: regular rate, regular rhythm, no murmurs *Q Meaningful Use (DIS) - VTE *Q VTE Criteria *Q: - Stroke *Q Stroke Criteria *Q: - AMI *Q AMI Criteria *Q: <Gilda Gamino - Last Filed: 07/22/16 15:56> Discharge Summary - Hospital Course Free Text/Narrative:: Transfer to [facility] for IR regarding diverticular abscess, 6.3 cm. Arrangement have been made, as outlined. - Patient Data Vitals - Most Recent: Last Vital Signs Temp 37.8 C 07/17/16 09:42 Pulse 93 07/17/16 09:42 Resp 14 07/17/16 09:42 BP 143/82 H 07/17/16 10:04 Pulse Ox 95 07/17/16 09:42 Med Orders - Current: Current Medications Discontinued Medications Acetaminophen (Tylenol) 650 mg PO Q4H PRN PRN Reason: Pain (Mild 1-3)/fever Acetaminophen/Hydrocodone Bitart ([place] 325-5 Mg) 1 tab PO Q4H PRN PRN Reason: Pain (moderate 4-6) Last Admin: 07/17/16 10:05 Dose: 1 tab Albuterol (Proventil Neb Soln) 2.5 mg NEB Q2H PRN PRN Reason: Shortness Of Breath/wheezing Diatrizoate Meglum/Diatrizoate Sod (Gastrografin 37%) 90 ml PO ONETIME ONE Stop: 07/12/16 14:44 Last Admin: 07/12/16 14:58 Dose: 90 ml Diatrizoate Meglum/Diatrizoate Sod (Gastrografin 37%) 120 ml PO ONETIME ONE Stop: 07/17/16 08:05 Last Admin: 07/17/16 08:53 Dose: 90 ml Duloxetine HCl (Cymbalta) 60 mg PO DAILY [facility] Last Admin: 07/17/16 10:05 Dose: 60 mg Flunisolide (Nasalide Nasal [place]) 0 ml NASBOTH DAILY PRN PRN Reason: Allergies Hydrochlorothiazide (Hydrochlorothiazide) 12.5 mg PO DAILY [facility] Last Admin: 07/16/16 10:42 Dose: 12.5 mg Hydrochlorothiazide (Hydrochlorothiazide) 25 mg PO DAILY [facility] Last Admin: 07/17/16 10:04 Dose: 25 mg Hydromorphone HCl (Dilaudid) 0.5 mg IVPUSH ONETIME ONE Stop: 07/12/16 13:21 Last Admin: 07/12/16 13:27 Dose: 0.5 mg Hydromorphone HCl (Dilaudid) 0.5 mg IVPUSH ONETIME ONE Stop: 07/12/16 14:20 Last Admin: 07/12/16 14:24 Dose: 0.5 mg Hydromorphone HCl (Dilaudid) 0.52 mg IVPUSH ONETIME ONE Stop: 07/12/16 17:46 Last Admin: 07/13/16 12:28 Dose: Not Given Hydromorphone HCl (Dilaudid) 0.5 mg IVPUSH ONETIME ONE Stop: 07/12/16 17:49 Last Admin: 07/12/16 17:53 Dose: 0.5 mg Hydromorphone HCl (Dilaudid) 0.5 mg IVPUSH Q2H PRN PRN Reason: Pain (severe 7-10) Stop: 07/16/16 23:59 Last Admin: 07/14/16 22:22 Dose: 0.5 mg Hydromorphone HCl (Dilaudid) 0.5 mg IVPUSH Q2H PRN PRN Reason: Pain (severe 7-10) Stop: 07/16/16 23:59 Last Admin: 07/16/16 12:48 Dose: 0.5 mg Hydromorphone HCl (Dilaudid) 1 mg IVPUSH Q2H PRN PRN Reason: Pain Last Admin: 07/17/16 12:11 Dose: 1 mg Sodium Chloride (Normal Saline) 1,000 mls @ 999 mls/hr IV ONETIME ONE Stop: 07/12/16 14:19 Last Admin: 07/12/16 13:27 Dose: 999 mls/hr Metronidazole 500 mg/ Premix 100 mls @ 100 mls/hr IV ONETIME ONE Stop: 07/12/16 19:05 Last Admin: 07/12/16 18:17 Dose: 100 mls/hr Levofloxacin/Dextrose 500 mg/ (Premix) 100 mls @ 100 mls/hr IV ONETIME ONE Stop: 07/12/16 19:11 Last Admin: 07/12/16 18:18 Dose: 100 mls/hr Promethazine HCl 12.5 mg/ (Sodium Chloride) 50.5 mls @ 100 mls/hr IV Q6H PRN PRN Reason: Nausea/Vomiting Dextrose/Sodium Chloride (Dextrose 5%-Normal Saline) 1,000 mls @ 125 mls/hr IV ASDIRECTED [facility] Last Admin: 07/16/16 03:07 Dose: 125 mls/hr Levofloxacin/Dextrose 500 mg/ (Premix) 100 mls @ 100 mls/hr IV Q24H [facility] Last Admin: 07/16/16 17:06 Dose: 100 mls/hr Metronidazole 500 mg/ Premix 100 mls @ 100 mls/hr IV Q8H [facility] Last Admin: 07/17/16 10:06 Dose: 100 mls/hr Sodium Chloride (Normal Saline) 100 mls @ 80 mls/hr IV ASDIRECTED [facility] Last Admin: 07/17/16 08:54 Dose: 80 mls/hr Potassium Chloride/Dextrose/Sod Cl (D5 Ns With 20 Meq Kcl) 1,000 mls @ 100 mls/ hr IV ASDIRECTED [facility] Last Admin: 07/17/16 12:17 Dose: 100 mls/hr Iopamidol (Isovue-300 (61%)) 125 ml IVPUSH ONETIME ONE Stop: 07/12/16 14:44 Last Admin: 07/12/16 14:59 Dose: 125 ml Iopamidol (Isovue-300 (61%)) 150 ml IVPUSH ONETIME ONE Stop: 07/17/16 08:06 Last Admin: 07/17/16 08:52 Dose: 125 ml Lisinopril (Prinivil) 10 mg PO DAILY [facility] Last Admin: 07/16/16 10:42 Dose: 10 mg Lisinopril (Prinivil) 20 mg PO DAILY [facility] Last Admin: 07/17/16 10:04 Dose: 20 mg Loratadine (Claritin) 10 mg PO DAILY PRN PRN Reason: Allergies Lorazepam (Ativan) 1 mg IV Q6H PRN PRN Reason: Other Magnesium Sulfate (Pharmacy To Dose - Magnesium Replacement) 1 dose .XX ASDIRECTED [facility] Metoprolol Tartrate (Lopressor) 5 mg IVPUSH Q4H PRN PRN Reason: Tachycardia Non-Formulary Medication (Sildenafil) 1 tab PO DAILY PRN PRN Reason: impotence Ondansetron HCl (Zofran) 4 mg IVPUSH ONETIME ONE Stop: 07/12/16 13:21 Last Admin: 07/12/16 13:27 Dose: 4 mg Ondansetron HCl (Zofran) 4 mg IV Q6H PRN PRN Reason: Nausea/Vomiting Last Admin: 07/17/16 12:13 Dose: 4 mg Potassium Chloride (Pharmacy To Dose - Potassium Replacement) 1 dose .XX ASDIRECTED [facility] Potassium Chloride (Klor-Con M20) 40 meq PO ONETIME ONE Stop: 07/15/16 11:01 Last Admin: 07/15/16 11:24 Dose: 40 meq Potassium Chloride (Klor-Con M20) 40 meq PO ONETIME ONE Stop: 07/17/16 10:51 Last Admin: 07/17/16 12:17 Dose: 40 meq Sodium Chloride (Saline Flush) 10 ml FLUSH ONETIME PRN PRN Reason: IV FLUSH Last Admin: 07/12/16 14:59 Dose: 10 ml Sodium Chloride (Saline Flush) 10 ml FLUSH ONETIME PRN PRN Reason: IV FLUSH Last Admin: 07/17/16 08:52 Dose: 10 ml Temazepam (Restoril) 30 mg PO BEDTIME PRN PRN Reason: Sleep Last Admin: 07/15/16 21:43 Dose: 30 mg Temazepam (Restoril) 30 mg PO BEDTIME PRN PRN Reason: SLEEP Stop: 07/12/16 23:00 Last Admin: 07/12/16 21:21 Dose: 30 mg Temazepam (Restoril) 30 mg PO BEDTIME PRN PRN Reason: Sleep Last Admin: 07/16/16 20:59 Dose: 30 mg *Q Meaningful Use (DIS) - VTE *Q VTE Criteria *Q: - Stroke *Q Stroke Criteria *Q: - AMI *Q AMI Criteria *Q:
[2016-07-17] MEDS ORDERED: HYDROmorphone 1 MG/ML Syringe IVPUSH PRN (11:14)
[2016-07-17] MEDS ORDERED: Dextrose 5%-0.9% NaCl with KCl 1,000 ML IV SCH (11:30)
== END 2016-07-17 12:37 | DRG 244 ==
LOC: JD.ED 12:42 → JD.MS 19:10 → OBSVTOIN 07-13 09:56 → JD.MS 07-13 09:56
PROVIDERS: ADMIT Internal Medicine; ATTEND Internal Medicine
DX: K57.32 Diverticulitis of large intestine without perforation or abscess without bleeding (principal); R00.0 Tachycardia, unspecified; E87.6 Hypokalemia; I10 Essential (primary) hypertension; E66.9 Obesity, unspecified; Z68.31 Body mass index [BMI] 31.0-31.9, adult; Z86.010 Personal history of colon polyps; F34.1 Dysthymic disorder; J30.2 Other seasonal allergic rhinitis; N52.9 Male erectile dysfunction, unspecified; F32.9 Major depressive disorder, single episode, unspecified; Z96.651 Presence of right artificial knee joint; Z79.899 Other long term (current) drug therapy
CPT/HCPCS: 36415; 74177; 74177-26; 80048; 80053; 83605; 83690; 83735; 84132; 85025; 86140; 93005; 96361; 96365; 96366; 96368; 96375; 96376; 99285; 99285-25; A9270-GY; G0378; J1170; J1956; J2405; J3480; J7030; J7040; J7042; J7050; Q9963; Q9967